=== PATIENT | female | born 1955 | race Caucasian/White ===

== ENCOUNTER → 2024-02-13 14:40 | Outpatient (REF) | payer MEDICARE, OTHER, SELFPAY | LOC: WDC 14:40 | PROVIDERS: ATTENDING PHYSICIAN Nurse Practitioner Adult Health | DX: N64.4 Mastodynia (principal); Z12.31 Encounter for screening mammogram for malignant neoplasm of breast | CPT/HCPCS: 76642; 77063; 77067 ==

== ENCOUNTER → 2024-03-25 13:58 | Outpatient (REF) | payer MEDICARE, OTHER, SELFPAY ==
[2024-03-25 12:36] LABS: Blood Urea Nitrogen 15 mg/dl (7-17); Calcium 9.8 mg/dl (8.4-10.2); Carbon Dioxide 30 mmol/L (22-30); Chloride 101 mmol/L (98-107); Glucose 96 mg/dl (70-99); Potassium 4.3 mmol/L (3.5-5.1); Sodium 137 mmol/L (135-145); eGFR > 60.00
== END ==
LOC: RAD 13:58
PROVIDERS: ATTENDING PHYSICIAN Nurse Practitioner Adult Health
DX: K59.01 Slow transit constipation (principal); R10.32 Left lower quadrant pain
CPT/HCPCS: 36415; 74177; 80048; Q9967

== ENCOUNTER → 2024-04-23 14:41 | Outpatient (REF) | payer MEDICARE, OTHER, SELFPAY | LOC: RAD 14:41 | PROVIDERS: ATTENDING PHYSICIAN Family Medicine | DX: Z12.31 Encounter for screening mammogram for malignant neoplasm of breast (principal); Z78.0 Asymptomatic menopausal state | CPT/HCPCS: 77080 ==

== ENCOUNTER 2024-04-27 01:02 | Emergency (ER) | payer MEDICARE, OTHER, SELFPAY ==
[2024-04-27 01:06] VITALS: BP 135/74
--- NOTE | 2024-04-27 01:43 | ED.GENMED ---
History of Present Illness
General
Chief Complaint: Chest Pain
Source: patient
Exam Limitations: none
Time Seen by Provider: 04/27/24 01:27
History of Present Illness
History of Present Illness:
See MDM
Past History
Past History
ED Past Medical History: Cancer and HTN
ED Past Surgical History: Cholecystectomy and Gynecological
Social History
Tobacco: Non-smoker
Alcohol: None
Phy Exam
Physical Exam
Physical Exam:
See MDM
Scores
Heart Score for Chest Pain Patients
STEMI patient?: No
History: Slightly or Non-Suspicious
ECG: Normal
Age: >/= 65 years
Risk Factors: 1 or 2 Risk Factors
Troponin: </= Normal Limit
Heart Score for Chest Pain Patients: 3
Heart Score Risk: 2.5% MACE over next 6 weeks
Course
Orders/Labs/Results
Orders:
Orders
04/27/24 01:03
Electrocardiogram (*1) Urgent
Reason for Study: Chest Pain
Cardiac Monitoring- Treatment ONCE
EKG- Treatment ONCE
IV Insert/Care/Rem.- Treatment PRN
O2 Therapy [RESP] Urgent
Titrate/Wean O2 to maintain O2 sat greater than (%): 90
Special Instructions: Maintain sats >/=90%
Pulse Ox/spot Check [RESP] Urgent
Quantity: 1
Special Instructions: ON ROOM AIR
04/27/24 01:38
Complete Blood Count/With Diff Urgent
Comprehensive Metabolic Panel Urgent
Lipase Urgent
Troponin I Urgent
04/27/24 01:41
CR Chest - 2 Views Urgent
Comment:
Reason For Exam: Resolving SOB
04/27/24 03:38
Troponin I Urgent
Abnormal Lab Results
04/27/24
01:38
RDW 15.1 H %
(11.5-14.5)
Creatinine 0.5 L mg/dL
(0.6-1.0)
Glucose 123 H mg/dl
(70-99)
AST 103 H U/L
(14-36)
ALT 60 H U/L
(0-35)
04/27/24 01:38
04/27/24 01:38
Vital Signs
Initial and Last Documented VS:
Initial Vital Signs
Temp Pulse Resp BP Pulse Ox
97.5 F 74 19 135/74 98
04/27/24 01:06 04/27/24 01:06 04/27/24 01:06 04/27/24 01:06 04/27/24 01:06
Last Documented Vital Signs
Temp Pulse Resp BP Pulse Ox
97.5 F 64 16 123/67 93
04/27/24 01:06 04/27/24 04:15 04/27/24 04:15 04/27/24 04:00 04/27/24 03:40
MDM/Problems Addressed
Differential Diagnosis Includes:
HPI and MDM Narrative:
68-year-old female presenting with resolving chest discomfort. Patient noted the discomfort approximately 2 hours ago when she was just lying in bed try to go to sleep. Patient ate Cheerios and strawberries for dinner and believes this is unlikely
the cause of her symptoms. She did throw up once when she arrived to the emergency department and all symptoms are resolving. She denies exertional shortness of breath and denies shortness of breath lying flat at the moment. Patient went to make
sure that her heart was okay. Prior records indicate that she had a cardiac catheterization 2 years ago with patent arteries
Given duration of symptoms, will obtain 2 troponin rule out
Physical exam
General: Well appearing and non-toxic
HEENT: protecting airway
Neck: appears supple
CV: No evidence of cyanosis. Regular rate and rhythm
Resp: No accessory muscle use. Lungs clear
Abd: Non-distended
Extremities: nonpitting edema to bilateral lower extremities
Neuro: alert
Psych: Normal affect
Skin: Intact
Problems Addressed including Acute and Chronic Conditions affecting care:
1. Resolving shortness of breath
Acuity: acute
Prognosis: stable
Details: Given no exertional, doubt ACS. Will obtain 2 troponin rule out and chest x-ray
Updates
Troponin negative x 2. Patient feels comfortable going home
Differential Diagnosis (but not limited to): ACS, CHF, pneumonia, energy
Testing considered: D-dimer but she is neither tachycardic nor hypoxic
Drug therapy (if applicable): OTC meds, please see d/c instruction regarding Rx drugs
Amount and/or Complexity of Data Reviewed
Clinical info obtained from: Patient
External data reviewed: N/A
Labs I independently reviewed (but not limited to): Troponin negative
Radiology: X-ray independently reviewed: Chest x-ray clear
Pulse Ox: not hypoxic
EKG independently reviewed: Sinus rhythm, normal axis, no STEMI
Engineer Operations And Maintenance: N/A
Critical Care: N/A
Risk of Complication:
Social Determinants of health: Good social support
Discussed with other providers: N/A
Escalation of Care includes Admit/Obs: After being observed in the Emergency Department, pt stable for discharge.
Occasional wrong word or 'sound a like' substitutions may have occurred due to the inherent limitations of voice recognition software. Read the chart carefully and recognize, using context, where substitutions have occurred.
*Critical Care Note
Total Time (30-74mins, 75-104mins- exclusive of procedures): Not Applicable
ED Attending Note
-
Portions of this chart may have been created with voice recognition software.� Occasional wrong word or��sound alike� substitutions may have occurred due to the inherent limitations of voice recognition software.
Discharge Plan
Departure
Patient Disposition: Home (Routine Discharge)
Date of Disposition: 04/27/24
Time of Disposition: 04:39
Patient with high blood pressure during this ER visit?: No
Discharge Problem:
Chest pain
Instructions: Chest Pain That Is Not Caused by the Heart (DC)
Prescriptions:
No Action
acetaminophen [Acetaminophen Extra Strength] 500 MG tablet
1,000 mg PO PRN PRN (Reason: pain)
cetirizine 10 MG tablet
10 mg PO QPM
cholecalciferol (vitamin D3) 2,000 UNIT tablet
5,000 unit PO QPM
Fiber 6 1,000 MG tablet
1 tab PO QPM
hydrochlorothiazide 12.5 mg Tablet
12.5 mg PO DAILY
zinc acetate 50 mg (zinc) Capsule
50 mg PO HS
Probiotic Complex 25 billion cell -100 mg Capsule
1 cap PO DAILY
Colace 50 mg Capsule
50 mg PO PRN PRN (Reason: costipation)
Referrals:
Steffanie Rivera MD [Family Provider] -
Activity Restrictions/Additional Instructions:
Please return for any worsening symptoms.
You may return at any time if you have further concerns.
Please follow up with your doctor at the first available appointment, preferably this week.
Thank you for choosing [facility].
Interventions
Interventions:
*Risk Screen - Suicide Last Done: 04/27/24 01:06
*General Assessment Last Done: 04/27/24 01:06
*Neglect/Abuse Screening Last Done: 04/27/24 01:06
ED- Fall Risk Assessment Last Done: 04/27/24 02:33
*ED COVID-19 Vaccine History Last Done: 04/27/24 01:06
ED- Cardiac Assessment Last Done: 04/27/24 01:51
Discharge Date and Time
Print Language: KINYARWANDA
[2024-04-27 01:45] VITALS: BP 113/58
[2024-04-27 01:48] LABS: % Basophils 1.3 % (0-2); % Eosinophils 2.1 % (0-6); % Immature Granulocytes 0.2 % (0-0.5); % Lymphocytes 29.8 % (20.5-51.1); % Monocytes 7.8 % (1.7-9.3); % Neutrophils 58.8 % (42.2-75.2); Absolute Basophils 0.1 10^3/uL (0-0.2); Absolute Eosinophils 0.2 10^3/uL (0-0.7); Absolute Lymphocytes 2.5 10^3/uL (1.2-3.4); Absolute Monocytes 0.6 10^3/uL (0.1-0.6); Absolute Neutrophils 4.8 10^3/uL (1.4-6.5); Hematocrit 41.3 % (37.0-47.0); Mean Corp Hgb Conc. 33.9 g/dL (33.0-37.0); Mean Corpuscular Volume 82.6 fL (81.0-99.0); Mean Platelet Volume 9.5 fL (7.4-10.4); Nucleated Red Blood Cells % 0 %; Platelet Count 235 10^3/uL (130-400); Red Cell Dist. Width 15.1 % (11.5-14.5); White Blood Cell Count 8.2 10^3/uL (4.8-10.8)
[2024-04-27 02:00] VITALS: BP 108/50
[2024-04-27 02:26] LABS: ALT (SGPT) 60 U/L (0-35); AST (SGOT) 103 U/L (14-36); Albumin 4.5 g/dl (3.5-5.0); Alkaline Phosphatase 58 U/L (38-126); Blood Urea Nitrogen 17 mg/dl (7-17); Calcium 9.4 mg/dl (8.4-10.2); Carbon Dioxide 24 mmol/L (22-30); Chloride 103 mmol/L (98-107); Glucose 123 mg/dl (70-99); Lipase 84 U/L (23-300); Potassium 5.1 mmol/L (3.5-5.1); Sodium 139 mmol/L (135-145); Total Bilirubin 0.9 mg/dl (0.2-1.3); Total Protein 7.4 g/dl (6.3-8.2); Troponin I 0.017 ng/ml; eGFR > 60.00
[2024-04-27 03:41] VITALS: BP 119/62
[2024-04-27 04:00] VITALS: BP 123/67
[2024-04-27 04:13] LABS: Troponin I < 0.012 ng/ml
== END 2024-04-27 04:49 | disposition home or self-care (01) ==
LOC: EMR 01:02
PROVIDERS: EMERGENCY PHYSICIAN Student in an Organized Health Care Education/Training Program; FAMILY PHYSICIAN Family Medicine
DX: R07.89 Other chest pain (principal); I10 Essential (primary) hypertension; Z90.49 Acquired absence of other specified parts of digestive tract
CPT/HCPCS: 99285; 71046; 80053; 83690; 84484; 85025; 93005

== ENCOUNTER → 2024-04-30 08:56 | Outpatient (REF) | payer MEDICARE, OTHER, SELFPAY ==
[2024-04-30 10:58] LABS: % Basophils 1.4 % (0-2); % Eosinophils 2.5 % (0-6); % Immature Granulocytes 0.6 % (0-0.5); % Lymphocytes 25.3 % (20.5-51.1); % Monocytes 8.3 % (1.7-9.3); % Neutrophils 61.9 % (42.2-75.2); Absolute Basophils 0.1 10^3/uL (0-0.2); Absolute Eosinophils 0.2 10^3/uL (0-0.7); Absolute Lymphocytes 1.7 10^3/uL (1.2-3.4); Absolute Monocytes 0.5 10^3/uL (0.1-0.6); Hematocrit 43.8 % (37.0-47.0); Hemoglobin 14.3 g/dL (12.0-16.0); Mean Corp Hgb Conc. 32.6 g/dL (33.0-37.0); Mean Corpuscular Hgb 28.2 pg (27.0-31.0); Mean Corpuscular Volume 86.4 fL (81.0-99.0); Mean Platelet Volume 9.8 fL (7.4-10.4); Nucleated Red Blood Cells % 0 %; Platelet Count 253 10^3/uL (130-400); Red Blood Cell Count 5.07 10^6/uL (4.20-5.40); Red Cell Dist. Width 14.5 % (11.5-14.5); White Blood Cell Count 6.5 10^3/uL (4.8-10.8)
[2024-04-30 12:01] LABS: ALT (SGPT) 700 U/L (0-35); AST (SGOT) 203 U/L (14-36); Albumin 4.3 g/dl (3.5-5.0); Alkaline Phosphatase 125 U/L (38-126); Blood Urea Nitrogen 15 mg/dl (7-17); Calcium 9.2 mg/dl (8.4-10.2); Carbon Dioxide 26 mmol/L (22-30); Chloride 101 mmol/L (98-107); GGTP 394 U/L (12-43); Glucose 86 mg/dl (70-99); Potassium 3.8 mmol/L (3.5-5.1); Sodium 141 mmol/L (135-145); Total Bilirubin 1.3 mg/dl (0.2-1.3); Total Protein 7.1 g/dl (6.3-8.2); eGFR > 60.00
== END ==
LOC: RAD 08:56
PROVIDERS: ATTENDING PHYSICIAN Internal Medicine
DX: R10.10 Upper abdominal pain, unspecified (principal); R07.9 Chest pain, unspecified; R79.89 Other specified abnormal findings of blood chemistry; K75.0 Abscess of liver; R10.84 Generalized abdominal pain; R74.8 Abnormal levels of other serum enzymes
CPT/HCPCS: 36415; 76700; 80053; 82977; 85025

== ENCOUNTER → 2024-05-02 09:16 | Outpatient (REF) | payer MEDICARE, OTHER, SELFPAY ==
[2024-05-02 12:00] LABS: ALT (SGPT) 366 U/L (0-35); AST (SGOT) 76 U/L (14-36); Albumin 4.2 g/dl (3.5-5.0); Alkaline Phosphatase 101 U/L (38-126); Blood Urea Nitrogen 10 mg/dl (7-17); Calcium 9.3 mg/dl (8.4-10.2); Carbon Dioxide 22 mmol/L (22-30); Chloride 105 mmol/L (98-107); Glucose 84 mg/dl (70-99); Potassium 4.3 mmol/L (3.5-5.1); Sodium 144 mmol/L (135-145); Total Bilirubin 0.8 mg/dl (0.2-1.3); Total Protein 6.9 g/dl (6.3-8.2); eGFR > 60.00
[2024-05-02 12:09] LABS: GGTP 300 U/L (12-43)
== END ==
LOC: REG 09:16
PROVIDERS: ATTENDING PHYSICIAN Internal Medicine; FAMILY PHYSICIAN Family Medicine
DX: R79.89 Other specified abnormal findings of blood chemistry (principal); R74.8 Abnormal levels of other serum enzymes
CPT/HCPCS: 36415; 80053; 82977

== ENCOUNTER → 2024-05-09 09:32 | Outpatient (REF) | payer MEDICARE, OTHER, SELFPAY ==
[2024-05-09 12:02] LABS: ALT (SGPT) 78 U/L (0-35); AST (SGOT) 26 U/L (14-36); Albumin 4.3 g/dl (3.5-5.0); Alkaline Phosphatase 75 U/L (38-126); Blood Urea Nitrogen 14 mg/dl (7-17); Calcium 9.5 mg/dl (8.4-10.2); Carbon Dioxide 27 mmol/L (22-30); Chloride 101 mmol/L (98-107); Glucose 84 mg/dl (70-99); Potassium 4.3 mmol/L (3.5-5.1); Sodium 140 mmol/L (135-145); Total Bilirubin 0.9 mg/dl (0.2-1.3); Total Protein 7.1 g/dl (6.3-8.2); eGFR > 60.00
[2024-05-09 12:52] LABS: GGTP 186 U/L (12-43)
== END ==
LOC: REG 09:32
PROVIDERS: ATTENDING PHYSICIAN Internal Medicine
DX: R79.89 Other specified abnormal findings of blood chemistry (principal); R74.8 Abnormal levels of other serum enzymes
CPT/HCPCS: 36415; 80053; 82977

== ENCOUNTER → 2024-05-16 09:24 | Outpatient (REF) | payer MEDICARE, OTHER, SELFPAY ==
[2024-05-16 10:53] LABS: ALT (SGPT) 38 U/L (0-35); AST (SGOT) 25 U/L (14-36); Albumin 4.4 g/dl (3.5-5.0); Alkaline Phosphatase 66 U/L (38-126); Blood Urea Nitrogen 12 mg/dl (7-17); Calcium 9.7 mg/dl (8.4-10.2); Carbon Dioxide 27 mmol/L (22-30); Chloride 100 mmol/L (98-107); GGTP 129 U/L (12-43); Glucose 91 mg/dl (70-99); Potassium 4.2 mmol/L (3.5-5.1); Sodium 140 mmol/L (135-145); Total Bilirubin 0.8 mg/dl (0.2-1.3); Total Protein 7.2 g/dl (6.3-8.2); eGFR > 60.00
== END ==
LOC: REG 09:24
PROVIDERS: ATTENDING PHYSICIAN Internal Medicine
DX: R74.8 Abnormal levels of other serum enzymes (principal); R79.89 Other specified abnormal findings of blood chemistry
CPT/HCPCS: 36415; 80053; 82977

== ENCOUNTER → 2024-05-19 16:00 | Outpatient (REF) | payer MEDICARE, OTHER, SELFPAY ==
[2024-05-19 17:21] LABS: ALT (SGPT) 35 U/L (0-35); AST (SGOT) 26 U/L (14-36); Albumin 4.6 g/dl (3.5-5.0); Alkaline Phosphatase 61 U/L (38-126); IgA 329 mg/dl (70-400); IgG 1359 mg/dl (700-1600); IgM 138 mg/dl (40-230); Iron 58 ug/dl (37-170); Total Bilirubin 0.4 mg/dl (0.2-1.3); Total Protein 7.5 g/dl (6.3-8.2)
[2024-05-19 17:30] LABS: Percent Saturation 19 % (20-50); Total Iron Binding Capacity 302 ug/dl (265-497)
[2024-05-19 19:00] LABS: Hepatitis B Surface Antigen Negative (Negative)
[2024-05-19 19:18] LABS: Hepatitis B Core Ab, Total Negative (Negative); Hepatitis B Surface Antibody Negative; Hepatitis C Antibody Negative (Negative)
[2024-05-19 19:39] LABS: Hepatitis A Antibody, Total Negative (Negative)
[2024-05-21 20:57] LABS: Alpha-1-Antitrypsin 154 mg/dL (90-200)
[2024-05-21 21:04] LABS: Ceruloplasmin 28 mg/dL (16-45)
[2024-05-22 03:02] LABS: F-Actin Antibody IgG 8 Units (0-19); Mitochondrial M2 Ab, IgG 18.4 Units (0.0-24.9)
[2024-05-22 07:30] LABS: ANA, IgG Reflex to HEp-2 None Detected (None Detected)
== END ==
LOC: REG 16:00
PROVIDERS: ATTENDING PHYSICIAN Physician Assistant; FAMILY PHYSICIAN Family Medicine
DX: K76.0 Fatty (change of) liver, not elsewhere classified (principal)
CPT/HCPCS: 80076; 82103; 82390; 82728; 82784; 83540; 83550; 86015; 86038; 86381; 86704; 86706; 86708; 86803; 87340

== ENCOUNTER → 2024-06-20 09:38 | Outpatient (REF) | payer MEDICARE, OTHER, SELFPAY ==
[2024-06-20 11:39] LABS: ALT (SGPT) 24 U/L (0-35); AST (SGOT) 22 U/L (14-36); Albumin 4.4 g/dl (3.5-5.0); Alkaline Phosphatase 57 U/L (38-126); Blood Urea Nitrogen 14 mg/dl (7-17); Calcium 9.8 mg/dl (8.4-10.2); Carbon Dioxide 26 mmol/L (22-30); Chloride 103 mmol/L (98-107); GGTP 31 U/L (12-43); Glucose 86 mg/dl (70-99); HDL Cholesterol 64 mg/dl; LDL Cholesterol, Calculated 127 mg/dl; Potassium 3.9 mmol/L (3.5-5.1); Sodium 141 mmol/L (135-145); Total Bilirubin 0.9 mg/dl (0.2-1.3); Total Cholesterol 210 mg/dl (50-199); Total Protein 7.5 g/dl (6.3-8.2); Triglyceride 99 mg/dl (10-149); Very Low Density Lipoprotein 19 mg/dl (0-30); eGFR > 60.00
[2024-06-20 12:05] LABS: CA 125 12.4 U/mL (0-35); TSH Reflex To Free T4 1.02 uIU/ml (0.47-4.68)
[2024-06-20 12:19] LABS: Glycohemoglobin (HgbA1c) 5.9 % (4.0-5.6)
== END ==
LOC: REG 09:38
PROVIDERS: ATTENDING PHYSICIAN Internal Medicine
DX: R79.89 Other specified abnormal findings of blood chemistry (principal); R74.8 Abnormal levels of other serum enzymes; E04.2 Nontoxic multinodular goiter; Z85.3 Personal history of malignant neoplasm of breast; E78.00 Pure hypercholesterolemia, unspecified; R73.9 Hyperglycemia, unspecified; R97.1 Elevated cancer antigen 125 [CA 125]
CPT/HCPCS: 36415; 80053; 80061; 82977; 83036; 84443; 86304

== ENCOUNTER → 2024-06-26 15:30 | Outpatient (REF) | payer MEDICARE, OTHER, SELFPAY | LOC: RAD 15:30 | PROVIDERS: ATTENDING PHYSICIAN Physician Assistant; FAMILY PHYSICIAN Family Medicine | DX: R10.11 Right upper quadrant pain (principal) | CPT/HCPCS: 74018 ==

== ENCOUNTER 2024-07-17 14:58 | Emergency (ER) | payer MEDICARE, OTHER, SELFPAY ==
[2024-07-17 15:10] VITALS: BP 143/77
--- NOTE | 2024-07-17 17:10 | ED.GENMED ---
History of Present Illness
General
Chief Complaint: Abdominal Symptoms
Time Seen by Provider: 07/17/24 17:09
History of Present Illness
History of Present Illness:
TIME OF INITIAL ENCOUNTER: 5:10 PM
HPI: Patient presents due to 2 months of diffuse abdominal pain and she was sent here by GI. She has no vomiting or diarrhea. See [facility] text message from below. The patient tells me that more recently she is also had some issues with
constipation. She tried MiraLAX as she normally does at nighttime but this has not been helping. It was then recommended by GI to start senna which she did and then had more pain after she had the senna. The abdominal pain is described as
diffuse. She had abnormal LFTs in the past which ultimately normalized without intervention.
EXAM:
GENERAL: Well appearing in minimal distress
HEENT: Moist oral mucosa
CARDIOVASCULAR: No murmurs, normal heart rate, regular rhythm, No chest wall tenderness
PULMONARY: No respiratory distress, breath sounds are clear and equal
ABDOMEN: Soft with no peritoneal signs, minimal diffuse abdominal tenderness, elevated BMI, empty rectal vault
NEUROLOGIC: Excellent strength all extremities, no coordination deficits
PSYCHIATRIC: Appropriate mental status, normal insight and judgement
EXTREMITIES: Nontender, no edema, moves all extremities equally
SKIN: No rash, no lesions
NUMBER AND COMPLEXITY OF PROBLEMS ADDRESSED AT THE ENCOUNTER
� Chronic conditions affecting care: Left breast cancer
� Acute Exacerbation and/or Progression of Chronic Illness: This is an acute but recurring problem
� Differential Diagnosis includes: Diverticulitis, constipation, mesenteric adenitis, bowel obstruction unlikely, rectal fecal impaction ruled out by exam
AMOUNT AND/OR COMPLEXITY OF DATA TO BE REVIEWED AND ANALYZED
� I performed an independent evaluation of and my interpretation is:
EKG:
CT: CT imaging personally reviewed and I do see some inflammatory changes of the right upper quadrant along with some suggestion of ileus
X-rays:
Laboratory Studies: White count is normal at 8.1, hemoglobin 13.3, chemistries are unremarkable including normal LFTs and lipase
Other:
� Review of other/old records: I reviewed the records when patient was here in April�at that time she presented with chest pain and had an abdominal ultrasound that showed a fatty liver. The patient also had a CAT scan in
May of the abdomen pelvis that was unremarkable. ALT peaked at 700 on April 30, 2024 and then normalized by May 19.
� Clinical information was obtained by an independent historian: I spoke to the at bedside
� Prescriptions/Medications Considered but not given:
� Further testing considered but not performed:
RISK OF COMPLICATIONS AND/OR MORBIDITY OR MORTALITY OF PATIENT MANAGEMENT
� Social determinants of health affecting care:
� Discussion with other providers: I reviewed the [facility] text from Kezia Arrington which indicates that the patient has 'chronic constipation but worsening upper abdominal pain despite treating the constipation, today with severe pain
so sent to the ED, in April had elevated LFTs which resolved and her abdominal imaging had been normal other than a fatty liver, possible CV stone that passed?, But concerned that she has persisting and worsening pain'. I also sent message
regarding the patient's workup to Dr. Swift spoke to her around 10:10 PM and we agreed to try antibiotics.
� Escalation of care including admission/observation vs risk of discharge considered: The patient was given Toradol and labs initially were relatively unremarkable however the patient described 9 out of 10 kind of pain therefore
CT imaging obtained.
ANY OTHER UPDATES:
9 PM: After Toradol was given, she feels markedly improved currently. CT imaging does show some inflammatory changes to the right upper quadrant of uncertain etiology. LFTs and lipase and white count are all normal.
10:15 PM: I reassessed patient and she continues to appear comfortable. Will start antibiotics for the possibly of diverticulitis however the location of the inflammatory changes in the right upper quadrant. She no longer has a gallbladder. She
actually does have follow-up arranged already with GI tomorrow for another study.
Past History
Past History
ED Past Medical History: Cancer and HTN
ED Past Surgical History: Cholecystectomy and Gynecological
Social History
Tobacco: Non-smoker
Alcohol: None
Phy Exam
Physical Exam
Physical Exam:
See HPI
Course
Orders/Labs/Results
Orders:
Orders
07/17/24 17:49
Complete Blood Count/With Diff Urgent
Comprehensive Metabolic Panel Urgent
Lipase Urgent
07/17/24 18:45
CT Abd/pelvis W Iv Cont Urgent
Comment:
Reason For Exam: diffuse pain severe
Ketorolac [Toradol] 15 mg IV NOW STA
07/17/24 22:13
Amoxicillin 875 mg/Clav 125 mg [Augmentin 875 mg/125 mg] 1 tablet PO NOW STA
Abnormal Lab Results
07/17/24
17:49
Absolute Neuts (auto) 7.2 H 10^3/uL
(1.4-6.5)
Absolute Lymphs (auto) 0.5 L 10^3/uL
(1.2-3.4)
Neutrophils % 88.8 H %
(42.2-75.2)
Lymphocytes % 6.3 L %
(20.5-51.1)
Creatinine 0.5 L mg/dL
(0.6-1.0)
Glucose 111 H mg/dl
(70-99)
07/17/24 17:49
07/17/24 17:49
Vital Signs
Initial and Last Documented VS:
Initial Vital Signs
Temp Pulse Resp BP Pulse Ox
37.2 C 91 20 143/77 97
07/17/24 15:10 07/17/24 15:10 07/17/24 15:10 07/17/24 15:10 07/17/24 15:10
Last Documented Vital Signs
Temp Pulse Resp BP Pulse Ox
37.2 C 72 18 122/61 93
07/17/24 15:10 07/17/24 21:10 07/17/24 21:10 07/17/24 21:10 07/17/24 19:11
*Critical Care Note
Total Time (30-74mins, 75-104mins- exclusive of procedures): Not Applicable
ED Attending Note
-
Portions of this chart may have been created with voice recognition software.� Occasional wrong word or��sound alike� substitutions may have occurred due to the inherent limitations of voice recognition software.
Discharge Plan
Departure
Patient Disposition: Home (Routine Discharge)
Date of Disposition: 07/17/24
Time of Disposition: 22:17
Patient with high blood pressure during this ER visit?: Yes
Discharge Problem:
Abdominal pain
Instructions: Diverticulitis (DC), Abdominal Pain
Prescriptions:
New
amoxicillin-pot clavulanate 875-125 mg tablet
1 tab PO BID Qty: 14 0RF
No Action
acetaminophen [Acetaminophen Extra Strength] 500 MG tablet
1,000 mg PO PRN PRN (Reason: pain)
cetirizine 10 MG tablet
10 mg PO QPM
cholecalciferol (vitamin D3) 2,000 UNIT tablet
5,000 unit PO QPM
Fiber 6 1,000 MG tablet
1 tab PO QPM
hydrochlorothiazide 12.5 mg Tablet
12.5 mg PO DAILY
zinc acetate 50 mg (zinc) Capsule
50 mg PO HS
Probiotic Complex 25 billion cell -100 mg Capsule
1 cap PO DAILY
Colace 50 mg Capsule
50 mg PO PRN PRN (Reason: costipation)
Referrals:
Marco A Ribeiro Jr., DO [Family Provider] -
Activity Restrictions/Additional Instructions:
Your blood work is normal. However there was some inflammatory changes noted in the right upper quadrant. This could be related to diverticulitis. I doubt pancreatitis as your lipase number was normal. I briefly spoke to Dr. Muse (the
on-call GI doctor). We agreed to have you try antibiotics. I recommend 3-4 odlm-lis-wedivsi ibuprofen (Motrin) every 8 hours with food for a few days�but I would recommend to limit the use of this. Return here if worse.
Interventions
Interventions:
*General Assessment Last Done: 07/17/24 15:16
*Neglect/Abuse Screening Last Done: 07/17/24 17:34
*ED COVID-19 Vaccine History Last Done: 07/17/24 17:27
XL-Shaull-Zdkexnpyhq Assessment Last Done: 07/17/24 18:07
Discharge Date and Time
Print Language: [place]
[2024-07-17 17:26] VITALS: BMI 36.2
[2024-07-17 17:54] VITALS: BP 123/66
[2024-07-17 18:00] VITALS: BP 131/65
[2024-07-17 18:07] LABS: % Basophils 0.6 % (0-2); % Eosinophils 0.1 % (0-6); % Immature Granulocytes 0.4 % (0-0.5); % Lymphocytes 6.3 % (20.5-51.1); % Monocytes 3.8 % (1.7-9.3); % Neutrophils 88.8 % (42.2-75.2); Absolute Basophils 0.1 10^3/uL (0-0.2); Absolute Lymphocytes 0.5 10^3/uL (1.2-3.4); Absolute Monocytes 0.3 10^3/uL (0.1-0.6); Absolute Neutrophils 7.2 10^3/uL (1.4-6.5); Hematocrit 40.1 % (37.0-47.0); Hemoglobin 13.3 g/dL (12.0-16.0); Mean Corp Hgb Conc. 33.2 g/dL (33.0-37.0); Mean Corpuscular Hgb 27.4 pg (27.0-31.0); Mean Corpuscular Volume 82.5 fL (81.0-99.0); Mean Platelet Volume 9.7 fL (7.4-10.4); Nucleated Red Blood Cells % 0 %; Platelet Count 163 10^3/uL (130-400); Red Blood Cell Count 4.86 10^6/uL (4.20-5.40); Red Cell Dist. Width 14.4 % (11.5-14.5); White Blood Cell Count 8.1 10^3/uL (4.8-10.8)
[2024-07-17 18:26] LABS: ALT (SGPT) 23 U/L (0-35); AST (SGOT) 30 U/L (14-36); Albumin 4.3 g/dl (3.5-5.0); Alkaline Phosphatase 39 U/L (38-126); Blood Urea Nitrogen 16 mg/dl (7-17); Calcium 9.1 mg/dl (8.4-10.2); Carbon Dioxide 22 mmol/L (22-30); Chloride 103 mmol/L (98-107); Estimated Creatinine Clearance 112 ml/min; Glucose 111 mg/dl (70-99); Lipase 40 U/L (23-300); Potassium 4.1 mmol/L (3.5-5.1); Sodium 138 mmol/L (135-145); Total Protein 7.3 g/dl (6.3-8.2); eGFR > 60.00
[2024-07-17] MEDS: TORADOL 15 MG IV (18:53)
[2024-07-17 19:00] VITALS: BP 121/62
[2024-07-17 21:10] VITALS: BP 122/61
[2024-07-17] MEDS: AUGMENTIN 875 MG/125 MG 1 TABLET PO (22:29)
[2024-07-17 22:55] VITALS: BP 122/60
== END 2024-07-17 23:10 | disposition home or self-care (01) ==
LOC: EMR 14:58
PROVIDERS: Emergency Medicine; EMERGENCY PHYSICIAN Emergency Medicine; FAMILY PHYSICIAN Family Medicine
DX: R10.84 Generalized abdominal pain (principal); I10 Essential (primary) hypertension; Z90.49 Acquired absence of other specified parts of digestive tract; Z85.3 Personal history of malignant neoplasm of breast
CPT/HCPCS: 96374; 99284; 74177; 80053; 83690; 85025; Q9967

== ENCOUNTER → 2024-09-15 12:18 | Outpatient (REF) | payer MEDICARE, OTHER, SELFPAY | LOC: REG 12:18 | PROVIDERS: ATTENDING PHYSICIAN Internal Medicine Gastroenterology; FAMILY PHYSICIAN Family Medicine | DX: R19.4 Change in bowel habit (principal); K59.09 Other constipation | CPT/HCPCS: 74018 ==

== ENCOUNTER → 2024-09-16 14:09 | Outpatient (REF) | payer MEDICARE, OTHER, SELFPAY | LOC: PAVMRI 14:09 | PROVIDERS: ATTENDING PHYSICIAN Internal Medicine Gastroenterology; FAMILY PHYSICIAN Family Medicine | DX: R10.11 Right upper quadrant pain (principal) | CPT/HCPCS: 74183; 82653; 82705; 87328; 87329; 89055; A9575 ==

== ENCOUNTER → 2024-09-19 13:21 | Outpatient (REF) | payer MEDICARE, OTHER, SELFPAY ==
[2024-09-19 14:51] LABS: ALT (SGPT) 62 U/L (0-35); AST (SGOT) 49 U/L (14-36); Alkaline Phosphatase 75 U/L (38-126); Blood Urea Nitrogen 8 mg/dl (7-17); Calcium 9.3 mg/dl (8.4-10.2); Carbon Dioxide 30 mmol/L (22-30); Chloride 97 mmol/L (98-107); Glucose 138 mg/dl (70-99); Lipase 256 U/L (23-300); Potassium 3.6 mmol/L (3.5-5.1); Sodium 134 mmol/L (135-145); Total Bilirubin 0.5 mg/dl (0.2-1.3); Total Protein 7.4 g/dl (6.3-8.2); eGFR > 60.00
[2024-09-21 20:46] LABS: CA 19-9 1899 U/mL (<=35)
== END ==
LOC: REG 13:21
PROVIDERS: ATTENDING PHYSICIAN Internal Medicine Gastroenterology; FAMILY PHYSICIAN Family Medicine
DX: K86.89 Other specified diseases of pancreas (principal)
CPT/HCPCS: 36415; 80053; 83690; 86301

== ENCOUNTER 2025-02-19 21:18 | Inpatient (IN) | payer MEDICARE, OTHER, SELFPAY ==
[2025-02-19 15:51] VITALS: BP 138/79
--- NOTE | 2025-02-19 18:07 | ED.GENMED ---
History of Present Illness
General
Chief Complaint: Abdominal Symptoms
Source: patient
Exam Limitations: none
Time Seen by Provider: 02/19/25 17:12
Nursing documentation reviewed up to this point in time: agreed with
History of Present Illness
History of Present Illness:
Patient is a 69-year-old female currently undergoing chemotherapy for pancreatic cancer diagnosed September 2024 presents to the ER for evaluation. She completed 7 rounds of chemo so far but for the past 1 week has had constant persistent watery
diarrhea. She denies bloody diarrhea or bloody stool. She has been taking Lomotil and Imodium without relief. Patient complains of feeling very weak dehydrated. No recent antibiotics. She denies any abdominal pain nausea vomiting fever chills.
She is due for paracentesis here tomorrow. also reports the patient is a history of low potassiums in the past and had a potassium transfusion last week.
No other complaints of chest pain or shortness of breath.
Past History
Past History
ED Past Medical History: Cancer and HTN
ED Past Surgical History: Cholecystectomy and Gynecological
Social History
Tobacco: Non-smoker
Alcohol: None
Phy Exam
General Physical Exam
General Presentation: no apparent distress
General age: appears stated age
General Skin: warm and dry
General Habitus: normal
General Mental: alert
General Hydration: dry mucous membranes
Cardiovascular Exam
Cardiovascular Exam: regular rate/rhythm, no murmur and normal peripheral pulses
Pulmonary Exam
Pulmonary Exam: lungs clear and no respiratory distress
Gastrointestinal Exam
Gastrointestinal Exam: non tender, soft, ascites and other
Neurological Exam
Neurological Exam: alert and oriented x3
Musculoskeletal Exam
Musculoskeletal Exam: full ROM
Skin Exam
Skin Exam: normal color and warm/dry
Psychiatric Exam
Psychiatric Exam: normal mood/affect
Course
Orders/Labs/Results
Orders:
Orders
02/19/25 Dinner
BRAT
At Your Request: Full Participation
Does patient need a safe tray?: No
02/19/25 18:07
0.9% Sodium Chloride 1000 ml [Nss] 1,000 ml IV BOLUS
02/19/25 18:14
Complete Blood Count/With Diff Urgent
Comprehensive Metabolic Panel Urgent
Ferritin Urgent
Comment: ADD ON
Iron Urgent
Comment: TIBC
Magnesium Urgent
Comment: ADD ON
Total Iron Binding Urgent
Comment: ADD ON
02/19/25 19:15
Electrocardiogram (*1) Stat
Reason for Study: Other
Other Reason for Exam: chest pain
Cardiac Monitoring- Treatment ONCE
EKG- Treatment ONCE
Potassium Chloride 10% Elixir [KCl Elixir] 40 meq PO NOW STA
02/19/25 19:22
Add On- LAB Urgent
Tests Added?: magnesium
Potassium Chloride [KCl] 40 meq 0.9% Sodium Chloride 250 ml [Nss] 250 ml IV NOW
02/19/25 19:43
C difficile Antigen & Toxins Urgent
ANGIE Source: ST
Specimen Description:
Date Specimen was Collected: 02/19/25
Time Specimen was Collected: 19:19
Stool Culture Urgent
ANGIE Source: Feces/Stool
Specimen Description:
Date Specimen was Collected: 02/19/25
Time Specimen was Collected: 19:19
02/19/25 20:56
Admit/Transfer Patient As Directed
Co-Sign Provider:
Level of Care: Inpatient admission
Assign to:: Telemetry
Physician / Group: Clark
Diagnosis: Diarrhea, Hypokalemia, Hypomagnesemia
Reason for Telemetry: Arrhythmia
Date to Stop Telemetry: 02/22/25
Time to Stop Telemetry: 11:00
Reason for Hospitalization: Diarrhea, Hypokalemia, Hypomagnesemia
Expected length of stay greater than two midnights?: Yes
ELOS- Estimated Length of Stay in days: 3
I certify the patient meets the requirements for IP care: Yes
PRN Pain Medication Management As Directed
May give lesser potent ordered pain med per pt: Yes
preference::
Protocol:: Medication orders for pain may be administered in a
manner that supports deferring to patient preference
when the pt is:
- Requesting an ordered lesser potent pain medication.
Least to most potent pain medications are defined
as: acetaminophen < NSAID < tramadol < opioids
(morphine, oxycodone, hydromorphone).
- Requesting a lesser dose of the same medication IF
ORDERED.
- Requesting a less intrusive route of administration
if both routes are prescribed by the provider (PO <
IV).
02/19/25 20:59
Code Status As Directed
Resuscitation Status: Full Code
02/19/25 21:42
Acetaminophen [Tylenol] 650 mg PO Q4HPRN PRN
KCl 40 Meq/0.9%Sodchl 1000 ml [NSS with KCL 40 MEQ] 40 meq in 1,000 ml IV 100 mls/hr
Loperamide [Imodium] 2 mg PO Q4HPRN PRN
02/19/25 21:42
STOOL [C difficile Antigen & Toxins] Urgent
ANGIE Source: Feces/Stool
Specimen Description:
Activity As Directed
Activity Level: Ambulate
With Assistance
EKG with chest pain [ECG as needed] As Directed
ECG as needed for:: Chest Pain
I/O [Intake/ Output] As Directed
Frequency: Per unit guidelines
Vital Signs As Directed
Frequency: Per unit guidelines
Weight As Directed
Frequency: Daily
Oxygen Therapy [O2 Therapy] [RESP] Routine
Titrate/Wean O2 to maintain O2 sat greater than (%): 94
PT Consult [Pt Eval And Treat] Routine
Activity Level: Ambulate
With Assistance
02/20/25 06:14
Basic Metabolic Panel IN AM
Complete Blood Count/No Diff IN AM
Magnesium IN AM
02/20/25 08:00
Apixaban [Eliquis] 5 mg PO BID
Pantoprazole [Protonix IV] 40 mg IV BID
Potassium Chloride [KCl] 20 meq PO BID
02/20/25 18:00
Cetirizine HCl [Zyrtec] 10 mg PO QPM
02/22/25 11:00
DC Protocol for Telemetry ONCE
Abnormal Lab Results
02/19/25
18:14
WBC 3.6 L 10^3/uL
(4.8-10.8)
RBC 2.77 L 10^6/uL
(4.20-5.40)
Hgb 7.3 L g/dL
(12.0-16.0)
Hct 22.2 L %
(37.0-47.0)
MCV 80.1 L fL
(81.0-99.0)
MCH 26.4 L pg
(27.0-31.0)
MCHC 32.9 L g/dL
(33.0-37.0)
RDW 24.1 H %
(11.5-14.5)
Plt Count 78 L 10^3/uL
(130-400)
Abs Immat Gran (auto) 0.2 H 10^3/uL
(0-0.05)
Absolute Lymphs (auto) 1.1 L 10^3/uL
(1.2-3.4)
Absolute Monos (auto) 0.7 H 10^3/uL
(0.1-0.6)
Immature Gran % 5.6 H %
(0-0.5)
Monocytes % 18.3 H %
(1.7-9.3)
Sodium 129 L mmol/L
(135-145)
Potassium 2.6 L* mmol/L
(3.5-5.1)
Carbon Dioxide 21 L mmol/L
(22-30)
Creatinine 0.5 L mg/dL
(0.6-1.0)
Calcium 7.8 L mg/dl
(8.4-10.2)
Magnesium 1.5 L mg/dl
(1.6-2.3)
Iron 34 L ug/dl
(37-170)
TIBC 244 L ug/dl
(265-497)
% Saturation 13 L %
(20-50)
Ferritin 916.0 H ng/ml
(11.1-264.0)
Total Protein 5.2 L g/dl
(6.3-8.2)
Albumin 2.6 L g/dl
(3.5-5.0)
02/19/25 18:14
02/19/25 18:14
Vital Signs
Initial and Last Documented VS:
Initial Vital Signs
Temp Pulse Resp BP Pulse Ox
98.6 F 97 16 138/79 100
02/19/25 15:51 02/19/25 15:51 02/19/25 15:51 02/19/25 15:51 02/19/25 15:51
Last Documented Vital Signs
Temp Pulse Resp BP Pulse Ox
97.7 F 79 16 114/69 97
02/20/25 19:00 02/20/25 19:00 02/20/25 19:00 02/20/25 19:00 02/20/25 19:00
MDM/Problems Addressed
Differential Diagnosis Includes:
Not limited to dehydration electrolyte abnormality
MDM/Problems Addressed:
Patient is a 69-year female currently undergoing chemotherapy for pancreatic cancer presents with persistent diarrhea for the past week not relieved with Lomotil and ibuprofen. She feels weak and dizzy. Will check electrolytes and give fluids.
Patient is due for paracentesis tomorrow. She has obvious ascites on exam however nontender no concern for SBP.
Patient's potassium was found to be low at 2.6. Will obtain EKG and order IV KCl and oral KCl. Patient's sodium was also found to be low at 129 creatinine 0.5. Patient's hemoglobin low at 7.3 platelets currently pending at this time.
Patient will require admission to the hospital. Stool culture pending.
Chronic conditions affecting care:
Currently being treated with chemo for pancreatic cancer
*Pulse Oximetry
SaO2: 100
Oxygen Mode of Delivery: Room air
Patient hypoxic: no
*EKG
Interpreted by ED Provider?: Yes
Heart Rate: 75
Rate: normal
Rhythm: sinus
Ischemia: non-specific ST changes
*Critical Care Note
Total Time (30-74mins, 75-104mins- exclusive of procedures): Not Applicable
ED Attending Note
-
Portions of this chart may have been created with voice recognition software.� Occasional wrong word or��sound alike� substitutions may have occurred due to the inherent limitations of voice recognition software.
Discharge Plan
Departure
Patient Disposition: Admit
Date of Disposition: 02/19/25
Time of Disposition: 19:43
Admit to: Telemetry
Admit to doctor: hospitaist
Presentation/result/management discussed w/ accepting MD/DO: Hospitalist
Patient with high blood pressure during this ER visit?: Yes
Condition: Fair
Covid-19: Not Applicable
Discharge Problem:
Diarrhea, Acute hypokalemia, Acute hyponatremia, Weakness
Interventions
Interventions:
*Risk Screen - Suicide Last Done: 02/19/25 15:51
*General Assessment Last Done: 02/19/25 15:51
*Neglect/Abuse Screening Last Done: 02/19/25 17:17
*ED- Fall Risk Assessment Last Done: 02/19/25 17:17
*ED COVID-19 Vaccine History Last Done: 02/19/25 15:51
*Nursing Disposition Last Done: 02/19/25 21:35
JG-Rbspim-Jicihvnbwk Assessment Last Done: 02/19/25 17:17
Discharge Date and Time
Discharge Date/Time: 02/19/25 21:36
[2025-02-19 18:15] VITALS: BMI 28.8
[2025-02-19] MEDS: NSS 1000 IV (18:42)
[2025-02-19 18:54] LABS: Hematocrit 22.2 % (37.0-47.0); Hemoglobin 7.3 g/dL (12.0-16.0); Mean Corp Hgb Conc. 32.9 g/dL (33.0-37.0); Mean Corpuscular Volume 80.1 fL (81.0-99.0); Red Cell Dist. Width 24.1 % (11.5-14.5)
[2025-02-19 19:00] VITALS: BP 105/54
[2025-02-19 19:08] LABS: ALT (SGPT) 24 U/L (0-35); AST (SGOT) 19 U/L (14-36); Albumin 2.6 g/dl (3.5-5.0); Alkaline Phosphatase 86 U/L (38-126); Blood Urea Nitrogen 13 mg/dl (7-17); Calcium 7.8 mg/dl (8.4-10.2); Carbon Dioxide 21 mmol/L (22-30); Chloride 101 mmol/L (98-107); Estimated Creatinine Clearance 99 ml/min; Glucose 84 mg/dl (70-99); Potassium 2.6 mmol/L (3.5-5.1); Sodium 129 mmol/L (135-145); Total Protein 5.2 g/dl (6.3-8.2); eGFR > 60.00
[2025-02-19] MEDS: KCL ELIXIR 40 MEQ PO (19:21)
[2025-02-19] MEDS: KCL 270 MEQ IV (19:37)
--- NOTE | 2025-02-19 19:40 | PHANOTE ---
02/19/2025, pt. does not know if she is taking Spironolactone 50 mg daily or not; filled on 01/26/2025 for 30-day supply per pharmacy records.
[2025-02-19 19:50] LABS: Anisocytosis 2+; Hypochromasia 3+; Macrocytosis 2+; Normal RBC Morphology No; Nucleated Red Blood Cells % 1.7 %; Platelet Count 78 10^3/uL (130-400); Polychromasia 1+
[2025-02-19 19:51] LABS: Ovalocytes 1+; Stomatocytes 1+; Tear Drop Red Blood Cells Occasional
[2025-02-19 19:59] LABS: Magnesium 1.5 mg/dl (1.6-2.3)
[2025-02-19 21:00] VITALS: BP 101/62
--- NOTE | 2025-02-19 21:05 | HPS.HSE ---
Family Physician
-
Family Physician: Marco A Ribeiro Jr.
Chief Complaint
-
Diarrhea
History of Present Illness
Patient is a 69y F with PMH significant for pancreatic cancer on chemo who presents to ED complaining of diarrhea x 1 week. Patient states that she had her most recent chemo last Sunday (11 days ago). She developed diarrhea 2 days later which
has persisted since that time. Patient reports approximately 8-10 bowel movements per day. Watery with color varying between brown to green. Had few black appearing stools a few nights ago which has since resolved. Crampy abdominal pain prior to
diarrhea. No N/V. No fevers / chills. Patient reports some diarrhea following previous chemo (currently on treatment #7) but never lasting this long.
She complains of lightheadedness and fatigue.
Note: Patient has significant abdominal distention and LE edema. She states that she is scheduled for paracentesis in the AM (has this done every two weeks).
Medical History
Past Medical History
Past Medical History: Reports Other
Additional Past Medical History:
Pancreatic Cancer
Pulmonary Embolism (2 months ago)
Thyroid Nodules
Breast Cancer s/p Lumpectomy and XRT
TOVA
Past Surgical History: Reports Other
Additional Past Surgical History:
Left Lumpectomy
Bilateral TKA
Cholecystectomy
D&C
Tubal Ligation
Social History
Tobacco: Non-smoker
Alcohol: None
Drug: None
Personal:
Living: With Family
Family History
Family History: Not pertinent
Allergies / Home Medications
Allergies reflects when Allergies were last updated in [employer].
Home Medications with original date entered in [employer]
Allergy/Medication List:
Allergies
Allergy/AdvReac Type Severity Reaction Status Date / Time
codeine (Codeine) Allergy chest pain Verified 02/19/25 15:56
morphine Allergy Unknown Verified 02/19/25 15:56
naproxen Allergy Rash Verified 02/19/25 15:56
Home Medications
Unknown Chemo Infusions 1 dose IV Q2W 02/19/25
apixaban 5 mg tablet (Eliquis) 5 mg PO BID 02/19/25
cetirizine 10 mg tablet 10 mg PO QPM 02/19/25
dexamethasone 4 mg tablet 8 mg PO .SEE BELOW 02/19/25
diphenoxylate-atropine 2.5 mg-0.025 mg tablet 1 tab PO Q6HPRN PRN diarrhea 02/19/25
furosemide 20 mg tablet 20 mg PO .SEE BELOW 02/19/25
hydrochlorothiazide 12.5 mg tablet 12.5 mg PO DAILY 02/19/25
loperamide 2 mg capsule 0 mg PO DIRECTED PRN diarrhea 02/19/25
ondansetron HCl 8 mg tablet 8 mg PO DAILYPRN PRN nausea/vomiting 02/19/25
oxycodone 5 mg tablet 5 mg PO DAILYPRN PRN severe pain 02/19/25
pegfilgrastim-apgf 6 mg/0.6 mL subcutaneous syringe (Nyvepria) 6 mg SC .SEE BELOW 02/19/25
potassium chloride 10 mEq capsule,extended release 20 meq PO BID 02/19/25
Review of Systems
-
History Source: Patient
A 12 point ROS was completed and negative except as noted: Yes
Constitutional: Reports Fatigue; Denies Fever or Chills
Respiratory: Denies Cough or Trouble Breathing
Cardiac: Denies Chest Pain or Palpitations
Abdomen/GI: Reports Diarrhea; Denies Abdominal Pain, Nausea or Vomiting
: Denies Dysuria or Frequency
Musculoskeletal: Reports Edema; Denies Joint Pain
Neurological: Denies Dizzy or Headache
Psych: Denies Depression or Anxiety
Physical Exam
Vital Signs
Vital Signs
Temp Pulse Resp BP Pulse Ox
98.6 F 88 24 105/54 97
02/19/25 15:51 02/19/25 20:19 02/19/25 20:19 02/19/25 19:00 02/19/25 20:19
Physical Exam
General: Other (69y F in no acute distress.)
HEENT: Moist mucous membranes and PERRLA
Respiratory: Clear; No Wheezes, Rales or Rhonchi
Cardiac: S1/S2 and Regular Rhythm; No Murmur
GI: Other (Abdomen is distended. Not firm or tender. Pos bowel sounds.)
Musculoskeletal: No Clubbing, No Cyanosis and Other (3-4+ pitting edema b/l LEs.)
Neuro: AO x 3
Laboratory Results
-
02/19/25 18:14
02/19/25 18:14
Laboratory Results
Total Bilirubin 0.7 mg/dl (0.2-1.3) 02/19/25 18:14
AST 19 U/L (14-36) 02/19/25 18:14
ALT 24 U/L (0-35) 02/19/25 18:14
Alkaline Phosphatase 86 U/L (38-126) 02/19/25 18:14
Impression/Plan
-
A/P: Patient is a 69y F with PMH significant for pancreatic cancer on chemo who presents to ED complaining of persistent diarrhea x 1 week.
Diarrhea
Hypokalemia
Hypomagnesemia
- Admit for further evaluation and treatment.
- Likely chemo-induced diarrhea.
- Check stool studies for completion but doubt infectious source.
- IVF and electrolyte replacement.
- Follow for improvement in labs / lytes.
- Follow for improvement in frequency / consistency of stools.
- BRAT diet as tolerated.
- Consider GI evaluation if diarrhea worsens / persists.
Pancytopenia
- Likely secondary to recent chemo.
- Follow cell counts for changes.
- Monitor for any active bleeding.
- Not currently neutropenic.
Pancreatic Cancer
- s/p chemo #7 last Sunday.
- Follow-up with Oncology ([facility]) after discharge.
- IR evaluation for planned paracentesis during stay.
- LE edema but seems intravascularly volume depleted due to GI losses / ongoing diarrhea.
Pulmonary Emboli
DVT Prophylaxis
- Diagnosed 2 months ago per patient.
- Continue Eliquis for now and monitor for any obvious signs of bleeding.
Code Status: Full
[2025-02-19 21:45] VITALS: BP 102/63; BMI 28.1
[2025-02-19 22:46] LABS: Iron 34 ug/dl (37-170)
[2025-02-19 22:57] LABS: Total Iron Binding Capacity 244 ug/dl (265-497)
[2025-02-19 23:00] VITALS: BP 97/57
[2025-02-19 23:37] LABS: Ferritin 916.0 ng/ml (11.1-264.0)
[2025-02-19] MEDS: NSS with KCL 40 MEQ 1000 IV (23:53)
[2025-02-20] VITALS (16 sets, daily range): BP systolic 73–114; BP diastolic 50–69; BMI 28.1
[2025-02-20] MEDS: MAGNESIUM SULFATE 50 IV (00:02)
--- NOTE | 2025-02-20 02:18 | PTCARENOTE ---
Patient was received from ED via stretcher and was assisted to bed by staff. She was oriented to room and surroundings. K-rider infusing. Tele NSR. HRR breath sounds are decreased at the bases. Abdomen large round and distended. Monitoring
for BM. LE with pitting edema +$. IVF and Mg Dario per order. Patient denies pain. Call santos in reach
[2025-02-20 07:00] LABS: Hematocrit 21.2 % (37.0-47.0); Hemoglobin 6.7 g/dL (12.0-16.0); Mean Corp Hgb Conc. 31.6 g/dL (33.0-37.0); Mean Corpuscular Volume 82.8 fL (81.0-99.0); Platelet Count 66 10^3/uL (130-400); Red Cell Dist. Width 24.8 % (11.5-14.5)
[2025-02-20 07:01] LABS: Blood Urea Nitrogen 12 mg/dl (7-17); Calcium 7.5 mg/dl (8.4-10.2); Carbon Dioxide 25 mmol/L (22-30); Chloride 107 mmol/L (98-107); Estimated Creatinine Clearance 98 ml/min; Glucose 75 mg/dl (70-99); Magnesium 2.0 mg/dl (1.6-2.3); Potassium 3.3 mmol/L (3.5-5.1); Sodium 131 mmol/L (135-145); eGFR > 60.00
[2025-02-20] MEDS: KCL 20 MEQ PO ×2 (08:38→22:02)
[2025-02-20] MEDS: ELIQUIS 5 MG PO ×2 (08:38→20:20)
[2025-02-20] MEDS: NSS (PRESERVATIVE FREE) 10 ML IV ×2 (08:38→20:20)
[2025-02-20] MEDS: PROTONIX IV 40 MG IV ×2 (08:38→20:20)
[2025-02-20] MEDS: FLUSH (NSS) 2 FLUSH IV (08:39)
[2025-02-20 08:50] LABS: Hepatitis C Antibody Negative (Negative)
--- NOTE | 2025-02-20 08:54 | W.PN.HOSP.TC ---
Today's Communication/Plan
-
see plan
Assessment / Plan
Assessment / Plan
69y F with PMH significant for pancreatic cancer on chemo who presents to ED complaining of persistent diarrhea x 1 week.
Gen: NAD, AAOx3.
Eyes: EOMI, PERRLA, no scleral icterus.
Neck: supple.
CV: RRR, +S1/S2, no m/r/g.
Resp: CTAB, no rales, wheezes, or rhonchi.
Abd: +BS, soft, NT, mod-sev distention with ascites
Skin: No rashes. 2-3+ B/L LE edema
Neuro: CN 2-12 intact, non-focal.
Psych: Normal mood and affect.
Diarrhea:
-Likely chemo-induced diarrhea
-Electrolyte abnormalities of hypokalemia and hypomagnesemia
-Hypomagnesemia has resolved
-Continue potassium repletion
-supportive care
Pancytopenia:
-likely chemo induced
-transfuse 2U pRBCs
Pancreatic Cancer:
-s/p chemo #7 10 days [employer]
-c/s ONC
-IR evaluation for planned paracentesis during stay
-LE edema but seems intravascularly volume depleted due to GI losses / ongoing diarrhea as well is third spacing from hypoalbuminemia
PE:
-Dx'd 2 months [employer]
-cont Eliquis (anemia due to chemo, no evidence of active bleeding at this time)
FULL/Eliquis
Total time spent on today's encounter was 50 minutes which included time spent in counseling the patient/family regarding diagnosis and treatment plan as listed above, goals of care, and symptom management. Case was discussed with nursing staff,
specialists, and care coordinators/case management. All labs and imaging personally reviewed by me. Remainder the time spent in detailed review of previous records, lab data, imaging, and other medical provider documentation.
Anticipated Discharge: 24 - 48 hours
Subjective/Interval History
-
Date of Service: February 20, 2025
Objective Data
-
Labs:
Laboratory Results
02/20/25
06:14
WBC 4.7 L
Hgb 6.7 L*
Hct 21.2 L
Plt Count 66 L
Sodium 131 L
Potassium 3.3 L D
Chloride 107
Carbon Dioxide 25
BUN 12
Creatinine 0.5 L
Glucose 75
Calcium 7.5 L
Vital Signs:
Vital Signs
Temp Pulse Resp BP Pulse Ox
98.2 F 78 18 100/54 97
02/20/25 03:00 02/20/25 03:00 02/20/25 03:00 02/20/25 03:00 02/20/25 03:00
I&O
02/19/25 02/20/25 02/21/25
06:59 06:59 06:59
Intake Total 1710 / 1710
Balance 1710 / 1710
[2025-02-20] MEDS: KCL 40 MEQ PO (09:58)
[2025-02-20 12:07] LABS: Body Fluid Second Tech EM
[2025-02-20] MEDS: NSS with KCL 40 MEQ 1000 IV ×2 (12:18→20:19)
--- NOTE | 2025-02-20 12:37 | CM ---
CM reviewed chart, patient seen bedside, initial assessment completed. Patient resides with her in a two story home, five steps to enter. Patient denies no issue with steps, reports having a walker, cane, and commode in the home from a past
surgery, denies current use. Patient reports she is current with [facility], currently receiving chemo. Patient confirms PCP Marco A Ribeiro, pharmacy [facility] or [facility]. Patient confirms prescription coverage,
denies insecurities at home. Patient reports she will be receiving blood, receiving potassium. CM will continue to follow for all discharge planning needs.
Plan; home with spouse, HARRIET [facility]
--- NOTE | 2025-02-20 13:04 | CON.ONC ---
Documented by User: BJ Hinson 02/20/25 13:25
Consultation
-
Date Consultation Requested: 02/20/25
Date Consultation Performed: 02/20/25
Requesting Provider: Dr. Rk Stein
Performing Provider: Dr. Vic Young
Reason for Consultation: pancreatic cancer
Impression
Impression
metastatic pancreatic cancer s/p C7 FOLFIRINOX with GCSF at [facility] a/w diarrhea
acute on chronic diarrhea without improvement despite chemo dose reduction
electrolyte derangement
malignant ascites
pancytopenia secondary to antineoplastic therapy
pulmonary emboli on DOAC
Plan
Plan
follow up stool studies, culture and C. diff -if negative Imodium prn -if diarrhea persists despite Imodium then Lomotil prn
transfuse Hgb <7 or as needed for sxs anemia -agree with PRBC ordered by Dr. Stein today
transfuse platelet count <10, <20 if febrile, <50 if bleeding
caution antiplatelet, anticoagulation, and nsaids if platelet count <50
prn paracentesis for symptom support, follow culture from para 7
Further outpatient malignancy management per [facility], restaging due this month
Patient History
History of Present Illness
69yo F with metastatic pancreatic cancer presented with acute on chronic diarrhea. Initial evaluation was notable for WBC 3.6 , ANC 500, Hgb 7.3, Hct 22.2, platelet count 78,000, Na 129, potassium 2.6, Magnesium 1.5, creatine 0.5 with normal LFTs.
She has been admitted, started on IVF, IV abx, and receiving IV electrolyte repletion. She underwent a paracentesis today, culture is pending. Her C. diff, is negative and stool cultures are pending.
In brief, Isabelle tells me that she has been undergoing chemotherapy with FOLFIRINOX with Dr. Espinoza. Does receive a long acting GCSF with each cycle. She had ongoing diarrhea from her chemotherapy for which she has had a dose reduction in prior
cycles. She receives all her treatment and imaging at [facility] so I do not have records to review, however, pt is a good historian.
Afebrile, no hypoxia, BP 90s/50s
Past-Medical/Surgical History
PMH left breast cancer tx with XRT & lumpectomy, pancreatic cancer, pulmonary emboli, TOVA
PSH left lumpectomy, b/l TKA, cholecystectomy, tubal ligation, D&C
Social nonsmoker, denies etoh or recreational drugs. Retired. Lives with
Patient Medication
�Medication �Instructions �Recorded �Confirmed �Last Taken �Type
Unknown Chemo Infusions 1 dose IV Q2W 02/19/25 02/19/25 02/09/25 History
apixaban 5 mg tablet (Eliquis) 5 mg PO BID 02/19/25 02/19/25 02/19/25 History
cetirizine 10 mg tablet 10 mg PO QPM 02/19/25 02/19/25 02/18/25 History
dexamethasone 4 mg tablet 8 mg PO .SEE BELOW 02/19/25 02/19/25 1 Week Ago History
~02/12/25
diphenoxylate-atropine 2.5 1 tab PO Q6HPRN PRN diarrhea 02/19/25 02/19/25 02/19/25 History
mg-0.025 mg tablet
furosemide 20 mg tablet 20 mg PO .SEE BELOW 02/19/25 02/19/25 Unknown History
hydrochlorothiazide 12.5 mg tablet 12.5 mg PO DAILY 02/19/25 02/19/25 02/19/25 History
loperamide 2 mg capsule 0 mg PO DIRECTED PRN diarrhea 02/19/25 02/19/25 02/19/25 History
ondansetron HCl 8 mg tablet 8 mg PO DAILYPRN PRN 02/19/25 02/19/25 Unknown History
nausea/vomiting
oxycodone 5 mg tablet 5 mg PO DAILYPRN PRN severe pain 02/19/25 02/19/25 2 Days Ago History
~02/17/25
pegfilgrastim-apgf 6 mg/0.6 mL 6 mg SC .SEE BELOW 02/19/25 02/19/25 02/09/25 History
subcutaneous syringe (Nyvepria)
potassium chloride 10 mEq 20 meq PO BID 02/19/25 02/19/25 02/19/25 History
capsule,extended release
Active Medications
Generic Name Dose Route Start Last Admin
Trade Name Freq PRN Reason Stop Dose Admin
Acetaminophen 650 mg 02/19/25 21:42
Acetaminophen 325 Mg Tablet PO 03/19/25 21:41
Q4HPRN PRN
Mild Pain / Temp > 101
Apixaban 5 mg 02/20/25 08:00 02/20/25 08:38
Apixaban (Eliquis) 5 Mg Tablet PO 03/20/25 07:59 5 mg
BID CLARISA Administration
Cetirizine HCl 10 mg 02/20/25 18:00
Cetirizine Hcl 10 Mg Tablet PO 03/20/25 17:59
QPM CLARISA
Potassium Chloride/Sodium Chloride 40 meq in 1,000 mls @ 100 mls/hr 02/19/25 23:30 02/20/25 12:18
Nss With Kcl 40 Meq IV 1,000 mls
.Q10H CLARISA Administration
Loperamide HCl 2 mg 02/19/25 21:42
Loperamide 2 Mg Capsule PO 03/19/25 21:41
Q4HPRN PRN
Diarrhea
Pantoprazole Sodium 40 mg 02/20/25 08:00 02/20/25 08:38
Pantoprazole Sodium 40 Mg/10 Ml Vial IV 03/20/25 07:59 40 mg
BID CLARISA Administration
Potassium Chloride 20 meq 02/20/25 08:00 02/20/25 08:38
Potassium Chloride 10 Meq Extended Release Tablet PO 03/20/25 07:59 20 meq
BID CLARISA Administration
Sodium Chloride 0 flush 02/19/25 22:00 02/20/25 08:39
Sodium Chloride 0.9% (Flush) Syringe IV 03/19/25 21:59 2 flush
PER PROTOCOL CLARISA Administration
Sodium Chloride 10 ml 02/20/25 08:00 02/20/25 08:38
Sodium Chloride 0.9% (Preservative Free) 10 Ml Vial IV 03/20/25 07:59 10 ml
BID CLARISA Administration
Review of Systems
-
ROS is notable for HPI, otherwise negative
Physical Exam
-
General: No Apparent Distress
HEENT: Moist Mucous Membranes; Negative Jaundice
Cardiology: Normal Sinus Rhythm
Pulmonary: Clear
GI: Soft and Distended
Extremities: Pulses Present and Edema
Neurology: Non Focal
Skin: Warm
Psych: Calm
Labs
Lab Results
WBC 4.7 10^3/uL (4.8-10.8) L 02/20/25 06:14
RBC 2.56 10^6/uL (4.20-5.40) L 02/20/25 06:14
Hgb 6.7 g/dL (12.0-16.0) L* 02/20/25 06:14
Hct 21.2 % (37.0-47.0) L 02/20/25 06:14
MCV 82.8 fL (81.0-99.0) 02/20/25 06:14
MCH 26.2 pg (27.0-31.0) L 02/20/25 06:14
MCHC 31.6 g/dL (33.0-37.0) L 02/20/25 06:14
RDW 24.8 % (11.5-14.5) H 02/20/25 06:14
Plt Count 66 10^3/uL (130-400) L 02/20/25 06:14
MPV 10.9 fL (7.4-10.4) H 02/20/25 06:14
Abs Immat Gran (auto) 0.2 10^3/uL (0-0.05) H 02/19/25 18:14
Absolute Neuts (auto) 1.5 10^3/uL (1.4-6.5) 02/19/25 18:14
Absolute Lymphs (auto) 1.1 10^3/uL (1.2-3.4) L 02/19/25 18:14
Absolute Monos (auto) 0.7 10^3/uL (0.1-0.6) H 02/19/25 18:14
Absolute Eos (auto) 0.0 10^3/uL (0-0.7) 02/19/25 18:14
Absolute Basos (auto) 0.1 10^3/uL (0-0.2) 02/19/25 18:14
Immature Gran % 5.6 % (0-0.5) H 02/19/25 18:14
Neutrophils % 42.4 % (42.2-75.2) 02/19/25 18:14
Lymphocytes % 31.7 % (20.5-51.1) 02/19/25 18:14
Monocytes % 18.3 % (1.7-9.3) H 02/19/25 18:14
Eosinophils % 0.3 % (0-6) 02/19/25 18:14
Basophils % 1.7 % (0-2) 02/19/25 18:14
Creatinine 0.5 mg/dL (0.6-1.0) L 02/20/25 06:14
Vital Signs
Vital Signs
Temp Pulse Resp BP Pulse Ox
97.7 F 83 18 114/65 99
02/20/25 12:05 02/20/25 12:05 02/20/25 12:05 02/20/25 12:05 02/20/25 12:05

Documented by User: Vic Young MD 02/20/25 18:52
Plan
Plan
follow up stool studies, culture and C. diff -if negative Imodium prn -if diarrhea persists despite Imodium then Lomotil prn
transfuse Hgb <7 or as needed for sxs anemia -agree with PRBC ordered by Dr. Stein today
transfuse platelet count <10, <20 if febrile, <50 if bleeding
caution antiplatelet, anticoagulation, and nsaids if platelet count <50
prn paracentesis for symptom support, follow culture from para 02/20
Further outpatient malignancy management per [facility], restaging due this month
Oncology Addendum:
Patient seen and evaluated w/ LOCOMOTIVE REPAIRER DIESEL
Agree w/ LOCOMOTIVE REPAIRER DIESEL note and plan as outlined
-pancreatic cancer tx at [facility] - FOLFIRINOX w/ GCSF support
-stool studies
-supportive care/ IVF
-monitor CBC transfuse prn
-f/u at [facility] for continued tx
Will continue to follow with you.
[2025-02-20] MEDS: ZYRTEC 10 MG PO (18:18)
--- NOTE | 2025-02-20 20:10 | PTCARENOTE ---
x 2 blood transfusion completed. patient tolerated well, with no signs of reactions. VSS. Afebrile. Order repeat H & H.
[2025-02-21 01:07] LABS: Hematocrit 27.3 % (37.0-47.0); Hemoglobin 9.1 g/dL (12.0-16.0); Mean Corp Hgb Conc. 33.3 g/dL (33.0-37.0); Mean Corpuscular Volume 82.5 fL (81.0-99.0); Platelet Count 72 10^3/uL (130-400); Red Cell Dist. Width 22.7 % (11.5-14.5)
[2025-02-21 01:29] LABS: Blood Urea Nitrogen 10 mg/dl (7-17); Calcium 7.8 mg/dl (8.4-10.2); Carbon Dioxide 22 mmol/L (22-30); Chloride 111 mmol/L (98-107); Estimated Creatinine Clearance 98 ml/min; Glucose 117 mg/dl (70-99); Potassium 4.1 mmol/L (3.5-5.1); Sodium 134 mmol/L (135-145); eGFR > 60.00
[2025-02-21 03:15] VITALS: BP 104/66
[2025-02-21] MEDS: NSS with KCL 40 MEQ 1000 IV (05:48)
[2025-02-21 06:00] VITALS: BMI 27.3
--- NOTE | 2025-02-21 06:50 | W.PN.ONC2 ---
Today's Communication / Plan
-
daily CBC -pending today
replete electrolytes
follow stool cultures
Impression
Impression
metastatic pancreatic cancer s/p C7 FOLFIRINOX with GCSF at [facility] a/w diarrhea
acute on chronic diarrhea without improvement despite chemo dose reduction
electrolyte derangement
malignant ascites
pancytopenia secondary to antineoplastic therapy -s/p 2U PRBC during hospitalization
pulmonary emboli on DOAC
Plan
Plan
follow up stool studies, culture and C. diff -if negative Imodium prn -if diarrhea persists despite Imodium then Lomotil prn
transfuse Hgb <7 or as needed for sxs anemia -agree with PRBC ordered by Dr. Stein today
transfuse platelet count <10, <20 if febrile, <50 if bleeding
caution antiplatelet, anticoagulation, and nsaids if platelet count <50
prn paracentesis for symptom support, follow culture from para 7/11
Further outpatient malignancy management per [facility], restaging due this month
Subjective/Objective
Subjective
no new complaints
improved diarrhea
mild hemorrhoid bleeding when performing hygeine after bowel movements
Vital Signs:
Vital Signs
Temp Pulse Resp BP Pulse Ox
99.4 F 95 16 104/66 96
02/21/25 03:15 02/21/25 03:15 02/21/25 03:15 02/21/25 03:15 02/21/25 03:15
Lab Results:
Laboratory Data
WBC 9.5 10^3/uL (4.8-10.8) 02/21/25 00:52
Hgb 9.1 g/dL (12.0-16.0) L D 02/21/25 00:52
Plt Count 72 10^3/uL (130-400) L 02/21/25 00:52
eGFR > 60.00 02/21/25 00:52
Physical Exam
HEENT: Moist Mucous Membranes; No Jaundice
Cardiology: Normal Sinus Rhythm
Pulmonary: Clear
GI: Soft and Distended
Extremities: Pulses Present and Edema
Neuro: Non Focal
[2025-02-21 07:27] VITALS: BP 118/61
[2025-02-21] MEDS: PROTONIX IV 40 MG IV (08:32)
[2025-02-21] MEDS: KCL 20 MEQ PO (08:33)
[2025-02-21] MEDS: ELIQUIS 5 MG PO (08:33)
[2025-02-21] MEDS: NSS (PRESERVATIVE FREE) 10 ML IV (08:33)
[2025-02-21 09:10] LABS: Hematocrit 29.0 % (37.0-47.0); Hemoglobin 9.6 g/dL (12.0-16.0); Mean Corp Hgb Conc. 33.1 g/dL (33.0-37.0); Mean Corpuscular Volume 83.3 fL (81.0-99.0); Platelet Count 64 10^3/uL (130-400); Red Cell Dist. Width 23.2 % (11.5-14.5)
[2025-02-21 09:29] LABS: Blood Urea Nitrogen 11 mg/dl (7-17); Calcium 7.9 mg/dl (8.4-10.2); Carbon Dioxide 19 mmol/L (22-30); Chloride 110 mmol/L (98-107); Estimated Creatinine Clearance 87 ml/min; Glucose 109 mg/dl (70-99); Potassium 4.1 mmol/L (3.5-5.1); Sodium 133 mmol/L (135-145); eGFR > 60.00
--- NOTE | 2025-02-21 09:54 | W.PN.HOSP.TC ---
Today's Communication/Plan
-
d/c
Assessment / Plan
Assessment / Plan
69y F with PMH significant for pancreatic cancer on chemo who presents to ED complaining of persistent diarrhea x 1 week.
Gen: NAD, AAOx3.
Eyes: EOMI, PERRLA, no scleral icterus.
Neck: supple.
CV: Remains RRR, +S1/S2, no m/r/g.
Resp: CTAB anteriorly, no rales, wheezes, or rhonchi.
Abd: +BS, soft, NT, mod distention with ascites
Skin: No rashes. 2-3+ B/L LE edema
Neuro: CN 2-12 intact, non-focal.
Psych: Normal mood and affect.
02/20/25 11:18 Peritoneal Fluid Gram Stain - Preliminary
02/19/25 19:43 Feces/Stool C. difficile GDH Antigen & Toxins - Final
Negative for toxigenic C.difficile
Diarrhea:
-Likely chemo-induced diarrhea
-Electrolyte abnormalities of hypokalemia and hypomagnesemia, resolved
-C diff NEG
-supportive care
- Today the patient reports her diarrhea is improved from yesterday
Pancytopenia:
-likely chemo induced
-s/p 2U pRBCs
Pancreatic Cancer:
-s/p chemo #7 10 days [employer]
-ONC following
-s/p paracentesis for 4050cc on 02/20/25
-LE edema but was intravascularly volume depleted due to GI losses / ongoing diarrhea as well is third spacing from hypoalbuminemia
PE:
-Dx'd 2 months [employer]
-cont Eliquis (anemia due to chemo, no evidence of active bleeding at this time)
FULL/Eliquis
Medically cleared for discharge.
Total time spent on d/c = 31 min. This included today's physical exam, progress note, review of laboratory and diagnostic data, preparation of discharge documents and prescriptions, and discussions about the pt's hospital course and discharge plan
with the patient and other medical office secretary involved in the patient's care.
Anticipated Discharge: Today
Subjective/Interval History
-
Date of Service: February 21, 2025
Diarrhea is improving. No other acute complaints.
Objective Data
-
Labs:
Laboratory Results
02/21/25 02/21/25
00:52 08:45
WBC 9.5 11.5 H
Hgb 9.1 L D 9.6 L
Hct 27.3 L 29.0 L
Plt Count 72 L 64 L
Sodium 134 L 133 L
Potassium 4.1 4.1
Chloride 111 H 110 H
Carbon Dioxide 22 19 L
BUN 10 11
Creatinine 0.6 0.6
Glucose 117 H 109 H
Calcium 7.8 L 7.9 L
Vital Signs:
Vital Signs
Temp Pulse Resp BP Pulse Ox
98.2 F 81 16 118/61 97
02/21/25 07:27 02/21/25 07:27 02/21/25 07:27 02/21/25 07:27 02/21/25 08:00
I&O
02/20/25 02/21/25 02/22/25
06:59 06:59 06:59
Intake Total 1710 / 1710 1839
Balance 1710 / 1710 1839 / 1839
[2025-02-21 11:19] VITALS: BP 99/56
--- NOTE | 2025-02-21 12:07 | CM ---
CM reviewed chart, patient seen bedside with , for discharge today. IMM verbally reviewed, provided with copy, placed in chart. Will send HARRIET referral to [facility]. CM will continue to follow for all discharge planning needs.
Plan; home with , HARRIET [facility]: [phone]
--- NOTE | 2025-02-22 13:45 | W.DCSUMMARY ---
Discharge Summary
Discharge Data
Date of Admission: 02/19/25
Date of Discharge: 02/21/25
-
Pending Results: Yes
Additional Pending Results:
Ascitic fluid cytology
Hospital Course
Primary diagnoses:
Chemotherapy-induced diarrhea and pancytopenia
Hypokalemia
Hypomagnesemia
Secondary diagnoses:
Pancreatic cancer
Pulmonary embolism
Consultants:
Oncology
Imaging:
None
Hospital course: 69-year-old female presented with a chief complaint of diarrhea as outlined in the H&P done on admission. Her diarrhea was likely chemotherapy-induced. She had associated electrolyte abnormalities of hypokalemia and
hypomagnesemia. Her potassium and magnesium were repleted. C. difficile was negative. Patient received supportive care and her diarrhea improved. She also had chemo induced pancytopenia and received 2 units of packed red blood cells. She
underwent paracentesis for 4050cc on 02/20/25 for which cytology is pending at the time of discharge but this is very likely malignant ascites. The patient was discharged in medically stable condition.
Discharge Plan
-
Patient Disposition: Home (Routine Discharge)
Discharge Diagnosis/Procedures: Chemotherapy-induced diarrhea, hypokalemia, hypomagnesemia, pancytopenia
Condition: Good
Diet: Regular
Activity: As tolerated
Driving Restrictions: As prior to admission
Blood Work: BMP and CBC in 4 days, prescription from PCP
Referrals:
Marco A Ribeiro Jr., DO [Family Provider, Internal Medicine] - in less than 1 week
Prescriptions:
Continued
potassium chloride 10 mEq capsule, extended release
20 meq PO BID
loperamide 2 mg capsule
0 mg PO DIRECTED PRN (Reason: diarrhea)
Patient Comments:
02/19/2025, take 2 capsules to start, then 1 capsule with each additional loose stool.
ondansetron HCl 8 mg tablet
8 mg PO DAILYPRN PRN (Reason: nausea/vomiting)
diphenoxylate-atropine 2.5-0.025 mg tablet
1 tab PO Q6HPRN PRN (Reason: diarrhea)
dexamethasone 4 mg Tablet
8 mg PO .SEE BELOW
Patient Comments:
02/19/2025, pt. states that she takes 2 tablets on the Sunday and Sunday following her chemo treatments every two weeks which occur on Mondays.
oxycodone 5 mg tablet
5 mg PO DAILYPRN PRN (Reason: severe pain)
Eliquis 5 mg Tablet
5 mg PO BID
Nyvepria 6 mg/0.6 mL Syringe
6 mg SC .SEE BELOW
Patient Comments:
02/19/2025, pt. takes this injection Q2W right after her chemo infusions.
Unknown Chemo Infusions
1 dose IV Q2W
Patient Comments:
02/19/2025, pt. gets a combination of 3 different chemo meds., but she does not know what they are; she gets this infusion through [facility].
cetirizine 10 mg Tablet
10 mg PO QPM
Discontinued
furosemide 20 mg tablet
20 mg PO .SEE BELOW
Patient Comments:
02/19/2025, prescribed for pt. to take 1 tablet daily but pt. states to be taking 1 tablet BID.
hydrochlorothiazide 12.5 mg Tablet
12.5 mg PO DAILY
Discharge Orders:
Discharge Patient (As Directed); Ordered 02/21/25
Ordered By: Rk Stein
Discharge Date and Time
Discharge Date/Time: 02/21/25 12:42
Print Language: SWISS
== END 2025-02-21 12:42 | disposition home health service (06) | DRG 393 ==
LOC: 4 WEST ACU 21:18
PROVIDERS: Nurse Practitioner; Nurse Practitioner Gerontology; Radiology Vascular & Interventional Radiology; ADMITTING PHYSICIAN Hospitalist; ATTENDING PHYSICIAN Internal Medicine; EMERGENCY PHYSICIAN Emergency Medicine; FAMILY PHYSICIAN Family Medicine; OTHER PHYSICIAN Internal Medicine Hematology & Oncology
PROC: 30233N1 Transfusion of Nonautologous Red Blood Cells into Peripheral Vein, Percutaneous Approach (ICD-10-PCS; 2025-02-20)
PROC: 0W9G3ZZ Drainage of Peritoneal Cavity, Percutaneous Approach (ICD-10-PCS; 2025-02-20)
DX: K52.1 Toxic gastroenteritis and colitis (principal); D61.810 Antineoplastic chemotherapy induced pancytopenia; C25.9 Malignant neoplasm of pancreas, unspecified; R18.0 Malignant ascites; E87.1 Hypo-osmolality and hyponatremia; T45.1X5A Adverse effect of antineoplastic and immunosuppressive drugs, initial encounter; E87.6 Hypokalemia; E83.42 Hypomagnesemia; G47.33 Obstructive sleep apnea (adult) (pediatric); E86.0 Dehydration; I10 Essential (primary) hypertension; Z86.711 Personal history of pulmonary embolism; Z85.3 Personal history of malignant neoplasm of breast; Z79.01 Long term (current) use of anticoagulants
CPT/HCPCS: 49083; 80048; 80053; 82042; 82728; 83540; 83550; 83735; 85025; 85027; 86803; 86850; 86900; 86901; 86920; 87015; 87045; 87046; 87070; 87205; 87324; 87427; 87449; 88112; 88305; 88341; 88342; 89051; 93005; 96361; 96374; 99285; P9016

== ENCOUNTER 2025-02-22 11:51 | Emergency (ER) | payer MEDICARE, OTHER, SELFPAY ==
[2025-02-22 11:56] VITALS: BP 125/84
[2025-02-22 12:37] VITALS: BMI 27.2
[2025-02-22 12:38] VITALS: BP 100/70
[2025-02-22 13:00] VITALS: BP 92/60
--- NOTE | 2025-02-22 13:00 | ED.GENMED ---
History of Present Illness
General
Chief Complaint: Abdominal Symptoms
Source: patient
Exam Limitations: none
Time Seen by Provider: 02/22/25 12:04
Nursing documentation reviewed up to this point in time: agreed with
History of Present Illness
History of Present Illness:
69 yr-year-old female past medical history of pancreatic cancer currently followed at [facility] receiving chemotherapy presents to the ER for evaluation. Patient was just admitted here for diarrhea and hypokalemia February 19 3 days ago. While here she had
a paracentesis which was done 2 days ago February 20. She reports she was discharged yesterday and last night she noticed drainage from the paracentesis site that has continued today. She reports it is clear. She denies any abdominal pain she reports
very minimal tenderness around the drainage site.
she denies any fever or chills. She denies any redness to the abdomen she still is having diarrhea had 1 episode today.
Past History
Past History
ED Past Medical History: Cancer and HTN
ED Past Surgical History: Cholecystectomy and Gynecological
Social History
Tobacco: Non-smoker
Alcohol: None
Phy Exam
General Physical Exam
General Presentation: no apparent distress
General age: appears stated age
General Skin: warm and dry
General Habitus: normal
General Mental: alert
General Hydration: appears well hydrated
Course
Orders/Labs/Results
Orders:
Orders
02/22/25 13:00
IV Insert/Care/Rem.- Treatment PRN
02/22/25 13:26
Complete Blood Count/With Diff Urgent
Comprehensive Metabolic Panel Urgent
Manual Differential Urgent
Abnormal Lab Results
02/22/25
13:26
WBC 13.6 H 10^3/uL
(4.8-10.8)
RBC 3.53 L 10^6/uL
(4.20-5.40)
Hgb 9.7 L g/dL
(12.0-16.0)
Hct 29.5 L %
(37.0-47.0)
MCHC 32.9 L g/dL
(33.0-37.0)
RDW 23.5 H %
(11.5-14.5)
Plt Count 82 L D 10^3/uL
(130-400)
Abs Neuts (Manual) 9.6 H 10^3/uL
(1.4-6.5)
Band Neutrophils 5 H %
(0-3)
Lymphocytes (Manual) 13 L %
(20-51)
Monocytes (Manual) 11 H %
(2-9)
Sodium 131 L mmol/L
(135-145)
Chloride 110 H mmol/L
(98-107)
Carbon Dioxide 20 L mmol/L
(22-30)
Glucose 121 H mg/dl
(70-99)
Calcium 7.7 L mg/dl
(8.4-10.2)
Alkaline Phosphatase 129 H U/L
(38-126)
Total Protein 4.7 L g/dl
(6.3-8.2)
Albumin 2.1 L g/dl
(3.5-5.0)
02/22/25 13:26
02/22/25 13:26
Vital Signs
Initial and Last Documented VS:
Initial Vital Signs
Temp Pulse Resp BP Pulse Ox
98.0 F 109 18 125/84 99
02/22/25 11:56 02/22/25 11:56 02/22/25 11:56 02/22/25 11:56 02/22/25 11:56
Last Documented Vital Signs
Temp Pulse Resp BP Pulse Ox
98.0 F 109 18 92/49 99
02/22/25 11:56 02/22/25 11:56 02/22/25 11:56 02/22/25 14:30 02/22/25 14:30
Associate Professor Of Geography consulted with Physician
Associate Professor Of Geography consulted with physician?: Yes ([place] )
MDM/Problems Addressed
MDM/Problems Addressed:
As documented patient is a 69-year-old female pancreatic cancer recently admitted for hyperkalemia and diarrhea recently had paracentesis. She reports normally they have glued the area once they have done it but this is the only time they have not.
She presents with this area leaking. It is leaking clear fluid. She is no acute distress and denies any fever or chills she reports a little tenderness around the site but no abdominal tenderness. Exam is not consistent with spontaneous
bacterial peritonitis. White count minimally elevated however none specific. She also does get Neupogen after chemo and has gotten this 2 wks ago.
as discussed patient is still having some back chronic diarrhea. Her calcium is 7.7 but corrected is normal with a low albumin of 2.1.; Her hemoglobin stable at 9.7 and sodium stable 131. Platelets are 82,000 which is improved from yesterday's
64,000.
I did apply Dermabond to the paracentesis site and patient was monitored with no further drainage. She is stable for discharge home.
*Pulse Oximetry
SaO2: 100
Oxygen Mode of Delivery: Room air
Patient hypoxic: no
*Critical Care Note
Total Time (30-74mins, 75-104mins- exclusive of procedures): Not Applicable
Data Reviewed
Review of Other/Old Records Reveals: Labs and Discharge Summary
Source: patient and family
ED Attending Note
-
Portions of this chart may have been created with voice recognition software.� Occasional wrong word or��sound alike� substitutions may have occurred due to the inherent limitations of voice recognition software.
Discharge Plan
Departure
Patient Disposition: Home (Routine Discharge)
Date of Disposition: 02/22/25
Time of Disposition: 15:22
Patient with high blood pressure during this ER visit?: No
Condition: Fair
Covid-19: Not Applicable
Discharge Problem:
paracentesis site leakage
Prescriptions:
No Action
potassium chloride 10 mEq capsule, extended release
20 meq PO BID
loperamide 2 mg capsule
0 mg PO DIRECTED PRN (Reason: diarrhea)
Patient Comments:
02/19/2025, take 2 capsules to start, then 1 capsule with each additional loose stool.
ondansetron HCl 8 mg tablet
8 mg PO DAILYPRN PRN (Reason: nausea/vomiting)
diphenoxylate-atropine 2.5-0.025 mg tablet
1 tab PO Q6HPRN PRN (Reason: diarrhea)
dexamethasone 4 mg Tablet
8 mg PO .SEE BELOW
Patient Comments:
02/19/2025, pt. states that she takes 2 tablets on the Sunday and Sunday following her chemo treatments every two weeks which occur on Mondays.
oxycodone 5 mg tablet
5 mg PO DAILYPRN PRN (Reason: severe pain)
Eliquis 5 mg Tablet
5 mg PO BID
Nyvepria 6 mg/0.6 mL Syringe
6 mg SC .SEE BELOW
Patient Comments:
02/19/2025, pt. takes this injection Q2W right after her chemo infusions.
Unknown Chemo Infusions
1 dose IV Q2W
Patient Comments:
02/19/2025, pt. gets a combination of 3 different chemo meds., but she does not know what they are; she gets this infusion through [facility].
cetirizine 10 mg Tablet
10 mg PO QPM
Referrals:
Marco A Ribeiro Jr., DO [Family Provider, Internal Medicine]
Activity Restrictions/Additional Instructions:
As discussed you had a small leaking from your paracentesis site. This was fixed by applying skin adhesive. You only had very minimal tenderness around the site. Return however if you have any increasing abdominal pain redness fever chills or any
further concerns. Follow-up with your primary care physician and oncologist as previously recommended.
Interventions
Interventions:
*Risk Screen - Suicide Last Done: 02/22/25 11:56
*General Assessment Last Done: 02/22/25 11:56
*Neglect/Abuse Screening Last Done: 02/22/25 11:56
*ED- Fall Risk Assessment Last Done: 02/22/25 12:37
*ED COVID-19 Vaccine History Last Done: 02/22/25 12:37
DO-Haowgh-Gofrymgzta Assessment Last Done: 02/22/25 12:38
ED-Skin Assessment Last Done: 02/22/25 12:38
Discharge Date and Time
Print Language: SCOTTISH
[2025-02-22 13:40] LABS: Hematocrit 29.5 % (37.0-47.0); Hemoglobin 9.7 g/dL (12.0-16.0); Mean Corp Hgb Conc. 32.9 g/dL (33.0-37.0); Mean Corpuscular Volume 83.6 fL (81.0-99.0); Nucleated Red Blood Cells % 0.2 %; Platelet Count 82 10^3/uL (130-400); Red Cell Dist. Width 23.5 % (11.5-14.5)
[2025-02-22 14:01] VITALS: BP 109/61
[2025-02-22 14:15] LABS: Absolute Neutrophils -Man Diff 9.6 10^3/uL (1.4-6.5)
[2025-02-22 14:16] LABS: Platelets Checked Yes
[2025-02-22 14:17] LABS: ALT (SGPT) 22 U/L (0-35); AST (SGOT) 20 U/L (14-36); Albumin 2.1 g/dl (3.5-5.0); Alkaline Phosphatase 129 U/L (38-126); Anisocytosis 1+; Blood Urea Nitrogen 15 mg/dl (7-17); Calcium 7.7 mg/dl (8.4-10.2); Carbon Dioxide 20 mmol/L (22-30); Chloride 110 mmol/L (98-107); Estimated Creatinine Clearance 87 ml/min; Glucose 121 mg/dl (70-99); Normal RBC Morphology No; Potassium 3.9 mmol/L (3.5-5.1); Sodium 131 mmol/L (135-145); Total Protein 4.7 g/dl (6.3-8.2); eGFR > 60.00
[2025-02-22 14:18] LABS: Hypochromasia 1+; Ovalocytes 1+; Schistocytes Occasional
[2025-02-22 14:19] LABS: Tear Drop Red Blood Cells FEW; Total Cells Counted 100
[2025-02-22 14:30] VITALS: BP 92/49
[2025-02-22 15:00] VITALS: BP 96/56
== END 2025-02-22 15:49 | disposition home or self-care (01) ==
LOC: EMR 11:51
PROVIDERS: Nurse Practitioner; EMERGENCY PHYSICIAN Emergency Medicine; FAMILY PHYSICIAN Family Medicine
DX: T81.89XA Other complications of procedures, not elsewhere classified, initial encounter (principal); Y92.9 Unspecified place or not applicable; E87.6 Hypokalemia; I10 Essential (primary) hypertension; Z90.49 Acquired absence of other specified parts of digestive tract
CPT/HCPCS: 99283; 80053; 85025

== ENCOUNTER → 2025-03-12 10:44 | Outpatient (REF) | payer MEDICARE, OTHER, SELFPAY ==
[2025-03-12 11:00] VITALS: BP 120/73; BP_SYST 93
[2025-03-12 11:45] VITALS: BP 108/54; BP_SYST 90
[2025-03-12 13:27] LABS: Body Fluid Second Tech EM
== END ==
LOC: RADI 10:44
PROVIDERS: ATTENDING PHYSICIAN Internal Medicine; FAMILY PHYSICIAN Family Medicine
DX: R18.8 Other ascites (principal)
CPT/HCPCS: 49083; 89051

== ENCOUNTER → 2025-03-17 16:07 | Outpatient (REF) | payer MEDICARE, OTHER, SELFPAY | LOC: RAD 16:07 | PROVIDERS: FAMILY PHYSICIAN Family Medicine | DX: C25.9 Malignant neoplasm of pancreas, unspecified (principal) | CPT/HCPCS: 74178; Q9967 ==

== ENCOUNTER → 2025-03-25 10:46 | Outpatient (REF) | payer MEDICARE, OTHER, SELFPAY ==
[2025-03-25 11:00] VITALS: BP 125/79; BP_SYST 93
[2025-03-25 13:03] VITALS: BP 104/52
[2025-03-25 13:22] LABS: Body Fluid Second Tech AMA
== END ==
LOC: RADI 10:46
PROVIDERS: ATTENDING PHYSICIAN Internal Medicine; FAMILY PHYSICIAN Family Medicine
DX: R18.8 Other ascites (principal)
CPT/HCPCS: 49083; 89051

== ENCOUNTER → 2025-04-10 11:05 | Outpatient (REF) | payer MEDICARE, OTHER, SELFPAY ==
[2025-04-10 11:29] VITALS: BP 123/71; BP_SYST 99
[2025-04-10 12:58] VITALS: BP 107/56
[2025-04-10 13:51] LABS: Body Fluid Second Tech CF
== END ==
LOC: RADI 11:05
PROVIDERS: ATTENDING PHYSICIAN Internal Medicine; FAMILY PHYSICIAN Family Medicine
DX: R18.8 Other ascites (principal)
CPT/HCPCS: 49083; 89051

== ENCOUNTER → 2025-04-24 10:33 | Outpatient (REF) | payer MEDICARE, OTHER, SELFPAY ==
[2025-04-24 10:53] VITALS: BP 107/71; BP_SYST 85
[2025-04-24 11:53] VITALS: BP 102/70; BP_SYST 82
[2025-04-24 12:09] VITALS: BP 102/70
[2025-04-24 14:06] LABS: Body Fluid Second Tech US
== END ==
LOC: RADI 10:33
PROVIDERS: ATTENDING PHYSICIAN Internal Medicine; FAMILY PHYSICIAN Family Medicine
DX: C80.1 Malignant (primary) neoplasm, unspecified (principal); R18.0 Malignant ascites
CPT/HCPCS: 49083; 89051

== ENCOUNTER → 2025-04-28 14:07 | Outpatient (REF) | payer MEDICARE, OTHER, SELFPAY ==
[2025-04-28 15:47] LABS: Blood Urea Nitrogen 20 mg/dl (7-17); Calcium 8.4 mg/dl (8.4-10.2); Carbon Dioxide 28 mmol/L (22-30); Chloride 101 mmol/L (98-107); Glucose 129 mg/dl (70-99); Potassium 4.1 mmol/L (3.5-5.1); Sodium 132 mmol/L (135-145); eGFR > 60.00
== END ==
LOC: REG 14:07
PROVIDERS: ATTENDING PHYSICIAN Family Medicine
DX: Z86.39 Personal history of other endocrine, nutritional and metabolic disease (principal)
CPT/HCPCS: 36415; 80048

== ENCOUNTER → 2025-05-08 10:35 | Outpatient (REF) | payer MEDICARE, OTHER, SELFPAY ==
[2025-05-08 10:55] VITALS: BP 103/58; BP_SYST 85
[2025-05-08 12:00] LABS: Body Fluid Second Tech EM
[2025-05-08 12:15] VITALS: BP 97/54
== END ==
LOC: RADI 10:35
PROVIDERS: ATTENDING PHYSICIAN Internal Medicine; FAMILY PHYSICIAN Family Medicine
DX: R18.8 Other ascites (principal); C25.9 Malignant neoplasm of pancreas, unspecified
CPT/HCPCS: 49083; 89051

== ENCOUNTER → 2025-05-21 11:00 | Outpatient (REF) | payer MEDICARE, OTHER, SELFPAY ==
[2025-05-21 11:10] VITALS: BP 113/59; BP_SYST 83
[2025-05-21 11:18] VITALS: BP 113/59
[2025-05-21 12:12] VITALS: BP 108/42
[2025-05-21 13:39] LABS: Body Fluid Second Tech AMA
== END ==
LOC: RADI 11:00
PROVIDERS: ATTENDING PHYSICIAN Internal Medicine; FAMILY PHYSICIAN Family Medicine
DX: R18.8 Other ascites (principal)
CPT/HCPCS: 49083; 89051

== ENCOUNTER → 2025-06-04 11:09 | Outpatient (REF) | payer MEDICARE, OTHER, SELFPAY ==
[2025-06-04 11:18] VITALS: BP 114/71; BP_SYST 88
[2025-06-04 12:14] VITALS: BP 114/65
[2025-06-04 12:49] LABS: Body Fluid Second Tech SS
== END ==
LOC: RADI 11:09
PROVIDERS: ATTENDING PHYSICIAN Registered Nurse; FAMILY PHYSICIAN Family Medicine
DX: R18.8 Other ascites (principal)
CPT/HCPCS: 49083; 88112; 88305; 89051

== ENCOUNTER → 2025-06-18 11:09 | Outpatient (REF) | payer MEDICARE, OTHER, SELFPAY ==
[2025-06-18 11:20] VITALS: BP 123/61; BP_SYST 88
[2025-06-18 12:25] VITALS: BP 106/59
[2025-06-18 13:11] LABS: Body Fluid Second Tech TC
== END ==
LOC: RADI 11:09
PROVIDERS: ATTENDING PHYSICIAN Registered Nurse; FAMILY PHYSICIAN Family Medicine
DX: R18.8 Other ascites (principal)
CPT/HCPCS: 49083; 88112; 88305; 88341; 88342; 89051

== ENCOUNTER → 2025-07-02 10:54 | Outpatient (REF) | payer MEDICARE, OTHER, SELFPAY ==
[2025-07-02 11:11] VITALS: BP 107/48; BP_SYST 79
[2025-07-02 13:12] LABS: Body Fluid Second Tech HB
== END ==
LOC: RADI 10:54
PROVIDERS: ATTENDING PHYSICIAN Registered Nurse; FAMILY PHYSICIAN Family Medicine
DX: R18.8 Other ascites (principal); C25.9 Malignant neoplasm of pancreas, unspecified
CPT/HCPCS: 49083; 88112; 88305; 89051

== ENCOUNTER → 2025-07-16 10:53 | Outpatient (REF) | payer MEDICARE, OTHER, SELFPAY ==
[2025-07-16 11:14] VITALS: BP 110/51; BP_SYST 86
[2025-07-16 12:34] LABS: Body Fluid Second Tech HB
== END ==
LOC: RADI 10:53
PROVIDERS: ATTENDING PHYSICIAN Registered Nurse
DX: R18.8 Other ascites (principal)
CPT/HCPCS: 49083; 89051

== ENCOUNTER → 2025-07-20 08:32 | Outpatient (REF) | payer MEDICARE, OTHER, SELFPAY ==
[2025-07-20 10:03] LABS: Glycohemoglobin (HgbA1c) 5.1 % (4.0-5.9)
[2025-07-20 10:07] LABS: ALT (SGPT) 42 U/L (0-35); AST (SGOT) 42 U/L (14-36); Albumin 3.3 g/dl (3.5-5.0); Alkaline Phosphatase 202 U/L (38-126); Blood Urea Nitrogen 23 mg/dl (7-17); Calcium 8.8 mg/dl (8.4-10.2); Carbon Dioxide 28 mmol/L (22-30); Chloride 100 mmol/L (98-107); Glucose 75 mg/dl (70-99); HDL Cholesterol 48 mg/dl; LDL Cholesterol, Calculated 72 mg/dl; Potassium 3.7 mmol/L (3.5-5.1); Sodium 132 mmol/L (135-145); Total Protein 6.9 g/dl (6.3-8.2); Very Low Density Lipoprotein 13 mg/dl (0-30); eGFR > 60.00
[2025-07-20 10:24] LABS: Vitamin D, 25-OH*** 32.8 ng/mL (30-80)
[2025-07-20 10:37] LABS: Hematocrit 27.3 % (37.0-47.0); Hemoglobin 8.4 g/dL (12.0-16.0); Mean Corp Hgb Conc. 30.8 g/dL (33.0-37.0); Mean Corpuscular Volume 90.1 fL (81.0-99.0); Platelet Count 249 10^3/uL (130-400); Red Cell Dist. Width 24.5 % (11.5-14.5)
[2025-07-20 10:39] LABS: Absolute Neutrophils -Man Diff 43.8 10^3/uL (1.4-6.5); Platelets Checked Yes
[2025-07-20 10:40] LABS: Acanthocytes 1+; Anisocytosis 1+; Hypochromasia 1+; Normal RBC Morphology No; Ovalocytes 1+; Polychromasia 1+; Total Cells Counted 100
== END ==
LOC: REG 08:32
PROVIDERS: ATTENDING PHYSICIAN Family Medicine
DX: R73.02 Impaired glucose tolerance (oral) (principal); C25.9 Malignant neoplasm of pancreas, unspecified; E78.00 Pure hypercholesterolemia, unspecified; E04.2 Nontoxic multinodular goiter; E55.9 Vitamin D deficiency, unspecified; E87.1 Hypo-osmolality and hyponatremia
CPT/HCPCS: 36415; 80053; 80061; 82306; 82565; 83036; 84443; 85025

== ENCOUNTER → 2025-07-30 10:58 | Outpatient (REF) | payer MEDICARE, OTHER, SELFPAY ==
[2025-07-30 11:25] VITALS: BP 101/59; BP_SYST 89
[2025-07-30 12:15] VITALS: BP 97/50
[2025-07-30 13:50] LABS: Body Fluid Second Tech HB
== END ==
LOC: RADI 10:58
PROVIDERS: ATTENDING PHYSICIAN Registered Nurse; FAMILY PHYSICIAN Family Medicine
DX: R18.8 Other ascites (principal)
CPT/HCPCS: 49083; 88112; 88305; 89051